=== PATIENT | female | born 1985 | race Caucasian/White ===

== ENCOUNTER 2020-02-12 07:47 | Outpatient (CLI) | payer OTHER, SELFPAY ==
[2020-02-12 08:44] LABS: Hematocrit 42.2 % (37.0-47.0); Mean Corpuscular HGB Conc 33.2 g/dl (32-36); Mean Corpuscular Hemoglobin 29.3 pg (26-34); Mean Corpuscular Volume 88.3 fl (80-100); Mean Platelet Volume 9.2 fl (7.4-10.4); Platelet Count Result 313 k/mm3 (150-375); Red Blood Count 4.78 M/mm3 (4.2-5.4); Red Cell Distribution Width 12.4 % (11.5-14.5)
[2020-02-12 08:58] LABS: Alanine Aminotransferase 17 U/L (4-35); Albumin Level 4.2 g/dL (3.5-5.1); Alkaline Phosphatase 136 U/L (38-126); Anion Gap 11 mmol/L (8-16); Aspartate Amino Transferase 19 U/L (14-36); Bilirubin,Total 0.6 mg/dL (0.2-1.3); Blood Urea Nitrogen 11 mg/dL (7-17); Calcium 9.3 mg/dL (8.4-10.2); Carbon Dioxide 26 mmol/L (22-30); Chloride 98 mmol/L (98-107); Cholesterol 176 mg/dL (0-200); Estimated Glomerular Filt Rate > 60; Glucose 331 mg/dL (65-105); HDL Direct 30 mg/dL; Hemoglobin A1C 10.8 % (<5.7); Potassium 4.3 mmol/L (3.4-5.0); Sodium 135 mmol/L (137-145); Triglycerides 429 mg/dL (<150)
[2020-02-12 09:10] LABS: LDL Cholesterol Direct 60 mg/dL
[2020-02-12 09:28] LABS: Thyroid Stimulating Hormone 0.207 uIU/mL (0.465-4.680)
[2020-02-16 00:03] LABS: Vitamin D 1,25 (OH)2 Total 63 pg/mL (18-72); Vitamin D2 1,25 (OH)2 <8 pg/mL; Vitamin D3 1,25 (OH)2 63 pg/mL
== END 2020-02-12 07:48 | disposition home or self-care (01) ==
PROVIDERS: PCP Nurse Practitioner Family; Visit Provider Nurse Practitioner Family
DX: E55.9 Vitamin D deficiency, unspecified (principal); K92.1 Melena; F41.9 Anxiety disorder, unspecified; R53.83 Other fatigue; E11.9 Type 2 diabetes mellitus without complications; Z86.32 Personal history of gestational diabetes; Z13.220 Encounter for screening for lipoid disorders
CPT/HCPCS: 36415; 80053; 80061; 82652; 83036; 84439; 84443; 85027

== ENCOUNTER 2020-05-12 00:48 | Outpatient (CLI) | payer OTHER, SELFPAY ==
[2020-05-12 19:06] LABS: SARS-CoV-2 RNA PCR Negative
== END 2020-05-12 00:49 | disposition home or self-care (01) ==
LOC: ANHCOVIDDT 00:48
PROVIDERS: PCP Nurse Practitioner Family; Visit Provider Internal Medicine Gastroenterology
DX: Z01.812 Encounter for preprocedural laboratory examination (principal); Z20.822 Contact with and (suspected) exposure to COVID-19
CPT/HCPCS: C9803; U0003

== ENCOUNTER 2020-05-15 00:43 | Day surgery (SDC) | payer OTHER, SELFPAY ==
[2020-05-07 13:57] VITALS: BMI 35.5
[2020-05-15 06:21] VITALS: BP 126/68; PULSE 87; RESP 20; TEMP 36.6; O2SAT 97
[2020-05-15] MEDS: LACTATED RINGERS 1,000 ML 150 ML IV CONT (06:32)
[2020-05-15 06:33] LABS: Glucose Point of Care 166 (65-105)
--- NOTE | 2020-05-15 07:10 | WPDANESEPPF ---
Anes - Initial Pre Proc Eval Procedure: Operation Date: 05/15/20 07:30 Proposed Procedures p Colonoscopy - Hudson Yusuf DO Date/Time: 05/15/20 07:10 Surgeon: Hudson Yusuf DO Pre Op Diagnosis: Bright red Blood Per Rectum Patient Data Age: 35 Gender: F Height: 5 ft 7 in Weight: 100.8 kg Last Vital Signs Temp 97.8 F 05/15/20 06:21 Pulse 87 05/15/20 06:21 Resp 20 05/15/20 06:21 BP 126/68 05/15/20 06:21 Pulse Ox 97 05/15/20 06:21 Allergies Allergy/AdvReac Type Severity Reaction Status Date / Time amoxicillin Allergy Severe Dyspnea / Verified 05/15/20 06:20 SOB dextromethorphan Allergy Severe Dyspnea / Verified 05/15/20 06:20 SOB Home Medications Medication Instructions Recorded Confirmed Type calcium carbonate 600 mg calcium 600 mg PO DAILY 02/01/20 05/07/20 History (1,500 mg) tablet cholecalciferol (vitamin D3) 125 125 mcg PO DAILY 02/01/20 05/07/20 History mcg (5,000 unit) capsule cimetidine 200 mg tablet 200 mg PO QID 02/01/20 05/07/20 History guselkumab 100 mg/mL subcutaneous 100 mg SUB-Q ONCE 02/01/20 05/07/20 History auto-injector levonorgestrel 20 mcg/24 hours (6 1 device I-UTERINE ONCE 02/01/20 05/07/20 History yrs) 52 mg intrauterine device multivitamin 1 tablet PO DAILY 02/01/20 05/07/20 History fluoxetine 20 mg capsule 20 mg PO DAILY #90 cap 02/04/20 05/07/20 Rx dapagliflozin 10 mg tablet 10 mg PO DAILY #30 tablet 02/27/20 05/07/20 Rx Laboratory Tests 05/15/20 06:26 POC Capillary Glucose 166 mg/dl H mg/dl (65-105) Patient hx anesthesia problems: none Family hx anesthesia problems: none PMFSH Past Medical History Medical History (Updated 02/12/20 @ 15:04 by Cassandra Gaona NP) Anxiety Blood in stool Family hx of colon cancer Hx of gestational diabetes mellitus, not currently Type 2 diabetes mellitus without complications Family History Family History (Updated 02/01/20 @ 16:19 by Cassandra Gaona NP) Father Alzheimer's disease with early onset Hypertension Dementia Heart disease Cerebrovascular accident Mother Diabetes mellitus Hypertension Anxiety w/panic attacks Colon polyp Grandparent Carcinoma of colon Hypertension Dementia Other Carcinoma of colon, Onset Age: 37 Maternal aunt - Onset at 37, at 40 Social History Social History (Updated 02/01/20 @ 16:18 by Cassandra Gaona NP) 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 Smoking status: Never smoker Alcohol intake: never Substance use: never Substance use type: does not use Living arrangements: with family Spiritual care concerns: No Anes - Eval Final PreProcedure Day of Procedure 05/15/20 07:10 Patient weight: obese Heart: regular rate and rhythm Lungs: clear to auscultation Airway: Mallampati scale class II Neurological: alert and oriented Last oral intake: >/= 8 hours ASA classification: II Emergent: no Anesthetic plan: proceed Anesthesia type and monitoring: general GIVS and standard monitoring Informed Consent: The patient's anesthetic plan and its attendant risks and benefits were discussed with the patient/family/POA. Questions were solicited and answers provided to the satisfaction of the patient/family/POA.
--- NOTE | 2020-05-15 07:16 | PM.IMHP ---
H&P: HPI History of Present Illness Date/Time: 05/15/20 07:16 Chief Complaint: Patient here for Narrative: Reason for visit is colonoscopy. This very pleasant lady seen in consultation at the request of primary physician. Impression: Here is a very pleasant lady with history of rectal bleeding. This may be perianal in origin. Underlying inflammatory neoplastic disease should be excluded. Patient does have a family history of colon cancer. IBS with diarrhea. Responsive to fiber and probiotic. DM. Psoriasis. Migraine. Anxiety. Recommendation: Colonoscopy. History: This very pleasant lady is here for colonoscopy. She has a family history of colon cancer. The patient does report a history of diarrhea. She takes a probiotic and fiber her diarrhea improves. The patient has developed some rectal bleeding. This consisted of bright red blood in the stool. This has since abated. She is here for colonoscopy. Physical examination: General: very pleasant patient in no acute distress. HEENT: Head was normocephalic sclerae is clear mouth without masses neck was supple. Heart: Rate rhythm regular without S3 or S4. Lungs: CTA. Abdomen: Soft with no guarding or rigidity. Bowel sounds were active. Neurologic: Cranial nerves 2 through 12 intact. No focal defects. No clonus. Musculoskeletal system: Revealed no joint tenderness or swelling no muscle atrophy. Extremities: Reveal no significant edema. Skin: Warm and dry with normal turgor. Mental status: intact. Patient is alert and oriented. Review of Systems Review of Systems: All systems reviewed & are unremarkable except as noted in HPI and below PMFSH Past Medical History Medical History (Updated 05/15/20 @ 07:15 by Hudson Yusuf DO) Anxiety Family hx of colon cancer IBS (irritable bowel syndrome) Migraine Psoriasis Type 2 diabetes mellitus without complications Family History Family History (Updated 02/01/20 @ 16:19 by Cassandra Gaona NP) Father Alzheimer's disease with early onset Hypertension Dementia Heart disease Cerebrovascular accident Mother Diabetes mellitus Hypertension Anxiety w/panic attacks Colon polyp Grandparent Carcinoma of colon Hypertension Dementia Other Carcinoma of colon, Onset Age: 37 Maternal aunt - Onset at 37, at 40 Social History Social History (Updated 02/01/20 @ 16:18 by Cassandra Gaona NP) 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 Smoking status: Never smoker Alcohol intake: never Substance use: never Substance use type: does not use Living arrangements: with family Spiritual care concerns: No Meds Home Medications and Allergies Home Medications Medication Instructions Recorded Confirmed Type calcium carbonate 600 mg calcium 600 mg PO DAILY 02/01/20 05/07/20 History (1,500 mg) tablet cholecalciferol (vitamin D3) 125 125 mcg PO DAILY 02/01/20 05/07/20 History mcg (5,000 unit) capsule cimetidine 200 mg tablet 200 mg PO QID 02/01/20 05/07/20 History guselkumab 100 mg/mL subcutaneous 100 mg SUB-Q ONCE 02/01/20 05/07/20 History auto-injector levonorgestrel 20 mcg/24 hours (6 1 device I-UTERINE ONCE 02/01/20 05/07/20 History yrs) 52 mg intrauterine device multivitamin 1 tablet PO DAILY 02/01/20 05/07/20 History fluoxetine 20 mg capsule 20 mg PO DAILY #90 cap 02/04/20 05/07/20 Rx dapagliflozin 10 mg tablet 10 mg PO DAILY #30 tablet 02/27/20 05/07/20 Rx Allergies Allergy/AdvReac Type Severity Reaction Status Date / Time amoxicillin Allergy Severe Dyspnea / Verified 05/15/20 06:20 SOB dextromethorphan Allergy Severe Dyspnea / Verified 05/15/20 06:20 SOB Vital Signs Vital Signs - 24 hr 05/15/20 06:21 Temperature 36.6 C Pulse Rate 87 Respiratory Rate 20 Blood Pressure 126/68 Pulse Oximetry 97
[2020-05-15 07:45] VITALS: BP 107/57; PULSE 82; RESP 20; O2SAT 97
[2020-05-15 07:55] VITALS: BP 110/57; PULSE 78; RESP 20; O2SAT 97
[2020-05-15 08:02] VITALS: BP 112/60; PULSE 78; RESP 20; O2SAT 98
== END 2020-05-15 08:52 | disposition home or self-care (01) ==
PROVIDERS: PCP Nurse Practitioner Family; Visit Provider Internal Medicine Gastroenterology
PROC: 0DJD8ZZ Inspection of Lower Intestinal Tract, Via Natural or Artificial Opening Endoscopic (ICD-10-PCS; CPT 45378; principal; 2020-05-15 07:30)
DX: K62.5 Hemorrhage of anus and rectum (principal); K63.5 Polyp of colon; K64.8 Other hemorrhoids; K58.0 Irritable bowel syndrome with diarrhea; E11.9 Type 2 diabetes mellitus without complications; L40.9 Psoriasis, unspecified; F41.9 Anxiety disorder, unspecified; Z80.0 Family history of malignant neoplasm of digestive organs; Z79.84 Long term (current) use of oral hypoglycemic drugs; E66.9 Obesity, unspecified; Z68.34 Body mass index [BMI] 34.0-34.9, adult
CPT/HCPCS: 45385; 88305; J2704; J7120

== ENCOUNTER 2020-08-08 13:03 | Outpatient (CLI) | payer OTHER, SELFPAY ==
--- NOTE | ~2020-08-08 | XR_ITS ---
EXAMINATION: XR chest 2V DATE: 08/08/2020 13:27 INDICATION: Cough. TECHNIQUE: Frontal and lateral views of the chest were obtained. COMPARISON: Chest single view 06/07/2012, chest CT 07/19/2016 FINDINGS: The chest demonstrates clear lungs without pneumonia, pleural effusion, or pneumothorax. Th e heart size is normal. There is mild chronic anterior wedging of multiple thoracic vertebral bodies. IMPRESSION: 1. No acute cardiopulmonary disease. Reviewed, dictated and finalized at location A.
[2020-08-08 14:51] LABS: Basophils Percent Auto 0.3 % (0.2-1.2); Eosinophils Absolute Auto 0.2 K/mm3 (0-0.3); Hematocrit 41.7 % (37.0-47.0); Hemoglobin 13.8 g/dL (12.0-15.0); Immature Granulocyte Absolute 0.03 K/mm3 (0.00-0.031); Immature Granulocyte Percent A 0.3 % (0-0.5); Lymphocytes Absolute Auto 3.31 K/mm3 (0.9-3.2); Mean Corpuscular HGB Conc 33.1 g/dl (32-36); Mean Corpuscular Hemoglobin 29.2 pg (26-34); Mean Corpuscular Volume 88.2 fl (80-100); Mean Platelet Volume 9.1 fl (7.4-10.4); Monocytes Absolute Auto 0.6 K/mm3 (0.1-0.6); Monocytes Percent Auto 6.3 % (2.6-8.5); Neutrophils Absolute Auto 5.8 K/mm3 (1.3-6.7); Neutrophils Percent Auto 58.1 % (45.5-73.1); Platelet Count Result 311 k/mm3 (150-375); Red Blood Count 4.73 M/mm3 (4.2-5.4)
[2020-08-08 15:05] LABS: Alanine Aminotransferase 12 U/L (4-35); Albumin Level 4.2 g/dL (3.5-5.1); Alkaline Phosphatase 90 U/L (38-126); Anion Gap 6 mmol/L (8-16); Aspartate Amino Transferase 18 U/L (14-36); Bilirubin,Total 0.3 mg/dL (0.2-1.3); Blood Urea Nitrogen 13 mg/dL (7-17); Carbon Dioxide 30 mmol/L (22-30); Chloride 102 mmol/L (98-107); Estimated Glomerular Filt Rate > 60; Glucose 105 mg/dL (65-105); Potassium 3.9 mmol/L (3.4-5.0); Sodium 138 mmol/L (137-145)
[2020-08-08 15:12] LABS: Hemoglobin A1C 6.6 % (<5.7)
== END 2020-08-08 13:04 | disposition home or self-care (01) ==
LOC: ANHIMG 13:07
PROVIDERS: PCP Nurse Practitioner Family; Visit Provider Nurse Practitioner Family
DX: R05 Cough (principal)
CPT/HCPCS: 36415; 71046; 80053; 83036; 85025

== ENCOUNTER 2021-11-09 17:07 | Outpatient (CLI) | payer OTHER, SELFPAY ==
--- NOTE | ~2021-11-09 | XR_ITS ---
XR ankle LT 2V, XR foot LT 2V 11/09/2021 17:27 INDICATION: Left ankle and foot pain PROCEDURE: 4 views left ankle and 2 views left foot COMPARISON: No prior studies for comparison. FINDINGS: Fracture, dislocation or subluxation is not identified. There is mild osteoarthritis of the first MTP joint. There are degenerative calcaneal enthesophytes at the plantar surface. Lisfranc sachin nt is intact. The soft tissues appear within normal limits. No foreign bodies are identified. IMPRESSION: 1: NO ACUTE BONE OR JOINT ABNORMALITY IDENTIFIED. Reviewed, dictated and finalized at location A. IMPRESSION: 1: NO ACUTE BONE OR JOINT ABNORMALITY IDENTIFIED.
== END 2021-11-09 17:08 | disposition home or self-care (01) ==
PROVIDERS: PCP Nurse Practitioner Family; Visit Provider Nurse Practitioner Family
DX: M25.572 Pain in left ankle and joints of left foot (principal)
CPT/HCPCS: 73600; 73620

== ENCOUNTER 2021-11-27 12:47 | Outpatient (CLI) | payer OTHER, SELFPAY ==
[2021-11-30 12:46] LABS: NIL 0.02 IU/mL; Quantiferon TB Plus, 1T NEGATIVE (NEGATIVE); TB1-NIL 0.03 IU/mL; TB2-NIL 0.03 IU/mL
== END 2021-11-27 12:48 | disposition home or self-care (01) ==
PROVIDERS: PCP Nurse Practitioner Family; Visit Provider Physician Assistant
DX: Z51.81 Encounter for therapeutic drug level monitoring (principal); Z79.899 Other long term (current) drug therapy
CPT/HCPCS: 36415; 86480

== ENCOUNTER 2022-06-11 12:37 | Outpatient (CLI) | payer OTHER, SELFPAY ==
--- NOTE | ~2022-06-11 | XR_ITS ---
Left Knee Technique: AP and lateral views were obtained. Clinical History: Pain Findings: No fracture or dislocation is seen. Osseous alignment is anatomic. Joint spaces are preserv ed without degenerative or erosive change. Moderate joint effusion is seen. Impression: Moderate joint effusion. No fracture or dislocation. Reviewed, dictated and finalized at [facility]. [employer]ITIONER Impression: Moderate joint effusion. No fracture or dislocation.
== END 2022-06-11 12:38 | disposition home or self-care (01) ==
PROVIDERS: PCP Family Medicine; Visit Provider Nurse Practitioner Family
DX: M25.562 Pain in left knee (principal); M25.462 Effusion, left knee
CPT/HCPCS: 73560

== ENCOUNTER 2022-08-03 08:32 | Emergency (ER) | payer OTHER, SELFPAY ==
[2022-08-03] VITALS (9 sets, daily range): BP systolic 120–142; BP diastolic 57–76; PULSE 81–104; RESP 14–20; TEMP 36.4–36.9; O2SAT 95–100
--- NOTE | ~2022-08-03 | CT_ITS ---
EXAMINATION: CT pelvis w con DATE: 08/03/2022 11:38 INDICATION: Left buttock abscess. TECHNIQUE: Computed tomography (CT) of the pelvis was performed with 100 mL Omnipaque 350 intravenous contrast. Automated exposure control and iterative reconstruction technique were employed. The dose- length product was 846.71 mGy-cm. COMPARISON: None FINDINGS: There are no dilated loops of bowel. The appendix is normal. There is a mildly enlarged lef t inguinal lymph node, likely reactive. There is an intrauterine device in expected position. There i s subcutaneous fat stranding, skin thickening, and soft tissue gas in the inferior left buttock and l eft perineum. There are no pathologically enlarged lymph nodes. IMPRESSION: 1. Cellulitis in the inferior left buttock and left perineum with soft tissue gas suspicious for necr otizing fasciitis. I called this result to Kimberlee Stevens. Reviewed, dictated and finalized at location A. IMPRESSION: 1. Cellulitis in the inferior left buttock and left perineum with soft tissue g as suspicious for necrotizing fasciitis. I called this result to Kimberlee jones.
--- NOTE | 2022-08-03 09:08 | PC.NURSE ---
pt brought back to room. Gait steady. Changing into a gown
[2022-08-03 09:35] LABS: Basophils Percent Auto 0.3 % (0.2-1.2); Eosinophils Absolute Auto 0.1 K/mm3 (0-0.3); Eosinophils Percent Auto 0.7 % (0-4.4); Hematocrit 38.7 % (37.0-47.0); Hemoglobin 13.1 g/dL (12.0-15.0); Immature Granulocyte Absolute 0.05 K/mm3 (0.00-0.031); Immature Granulocyte Percent A 0.5 % (0-0.5); Lymphocytes Absolute Auto 1.84 K/mm3 (0.9-3.2); Lymphocytes Percent Auto 16.6 % (18.3-44.2); Mean Corpuscular HGB Conc 33.9 g/dl (32-36); Mean Corpuscular Hemoglobin 30.1 pg (26-34); Mean Platelet Volume 8.9 fl (7.4-10.4); Monocytes Absolute Auto 0.9 K/mm3 (0.1-0.6); Monocytes Percent Auto 8.3 % (2.6-8.5); Neutrophils Absolute Auto 8.2 K/mm3 (1.3-6.7); Neutrophils Percent Auto 73.6 % (45.5-73.1); Platelet Count Result 336 k/mm3 (150-375); Red Blood Count 4.35 M/mm3 (4.2-5.4); White Blood Count 11.1 K/mm3 (4.5-10.0)
[2022-08-03 10:16] LABS: Alanine Aminotransferase 14 U/L (6-35); Albumin Level 3.7 g/dL (3.5-5.1); Alkaline Phosphatase 114 U/L (38-126); Anion Gap 7 mmol/L (8-16); Aspartate Amino Transferase 13 U/L (14-36); Bilirubin,Total 0.6 mg/dL (0.2-1.3); Blood Urea Nitrogen 9 mg/dL (7-17); Calcium 8.5 mg/dL (8.4-10.2); Carbon Dioxide 27 mmol/L (22-30); Chloride 99 mmol/L (98-107); Estimated CRCL calculation 197 ml/min; Estimated Glomerular Filt Rate > 60; Glucose 310 mg/dL (65-110); Potassium 3.6 mmol/L (3.4-5.0); Sodium 133 mmol/L (137-145)
--- NOTE | 2022-08-03 10:19 | ED.GENADULT ---
HPI - General Adult General Chief complaint: Wound/Laceration <Kimberlee Stevens PA-C - Last Filed: 08/03/22 17:35> Stated complaint: left buttocks cellulitis - on antibiotics <Kimberlee Stevens PA-C - Last Filed: 08/03/22 17:35> Time Seen by Provider: 08/03/22 09:07 <Kimberlee Stevens PA-C - Last Filed: 08/03/22 17:35> Source: patient <ALEXANDRA Molina Last Filed: 08/03/22 17:35> Mode of arrival: ambulatory <ALEXANDRA Molina Last Filed: 08/03/22 17:35> Limitations: no limitations <ALEXANDRA Molina Last Filed: 08/03/22 17:35> History of Present Illness HPI narrative: Patient is a 37-year-old female, with PMH of uncontrolled DM, who presents to the ED with report of cellulitis/abscess to her left buttock. Patient reports she first noticed a bump in her left inner gluteal fold/sulcus/proximal thigh last Tuesday. She thought she had cut herself while shaving. She began noticing increased warmth, erythema, tenderness, abscess formation throughout the week. She was started on clindamycin 300 mg 3 times daily by her primary care doctor on and has been taking this as directed. She denies any improvement of her symptoms, actually reports worsening. She states the abscess begins draining purulent and sanguinous drainage on Tuesday, worsening over the weekend. Patient has not had any fevers. She does report nausea, but denies vomiting, abdominal pain, rectal bleeding, rectal pain, abnormal vaginal bleeding or discharge. Patient does have a history of diabetes mellitus, and reports her sugars have been elevated greater than 250 for the last several days. She states she topped taking her Farxiga in May and never followed up with anyone for this. She was started on Glimepiride Tuesday. <ALEXANDRA Molina Last Filed: 08/03/22 17:35> Related Data Home medications: Home Medications Medication Instructions Recorded Confirmed cholecalciferol (vitamin D3) 125 125 mcg PO DAILY 02/01/20 07/29/22 mcg (5,000 unit) capsule guselkumab 100 mg/mL subcutaneous 100 mg subcut ONCE 02/01/20 07/29/22 auto-injector (Tremfya) levonorgestrel 21 mcg/24 hours (8 1 device intrauterine ONCE 02/01/20 07/29/22 yrs) 52 mg intrauterine device (Mirena) multivitamin 1 tablet PO DAILY 02/01/20 07/29/22 cimetidine 200 mg tablet 200 mg PO DAILY 03/01/22 07/29/22 oregano oil 1,500 mg capsule mg PO 07/29/22 07/29/22 <Kimberlee Stevens PA-C - Last Filed: 08/03/22 17:35> Allergies/adverse reactions: Allergies Allergy/AdvReac Type Severity Reaction Status Date / Time amoxicillin Allergy Severe Dyspnea / Verified 08/03/22 08:33 SOB dextromethorphan Allergy Severe Dyspnea / Verified 08/03/22 08:33 SOB <Kimberlee Stevens PA-C - Last Filed: 08/03/22 17:35> Review of Systems Review of Systems: CONSTITUTIONAL: Denies fever, chills, or sweats. CARDIOVASCULAR: Denies chest pain. RESPIRATORY: Denies dyspnea. GASTROINTESTINAL: See HPI. GENITOURINARY: See HPI. SKIN: See HPI. NEUROLOGIC: Denies headache, numbness, or weakness. <Kimberlee Stevens PA-C - Last Filed: 08/03/22 17:35> All systems reviewed & are unremarkable except as noted in HPI and below <Kimberlee Stevens PA-C - Last Filed: 08/03/22 17:35> PMFSH Past Medical History Medical History: Medical History Anxiety Diabetes Family hx of colon cancer GERD (gastroesophageal reflux disease) Headache IBS (irritable bowel syndrome) Migraine Psoriasis Type 2 diabetes mellitus without complications <Kimberlee Stevens PA-C - Last Filed: 08/03/22 17:35> Surgical History Surgical History: Surgical History History of tonsillectomy Hx of colonoscopy with polypectomy (~05/2020) Polyp x1, repeat in [address] Yusuf <Kimberlee Woodard G
[2022-08-03] MEDS: SODIUM CHLORIDE 0.9% IV 1,000 ML 999 ML IV CONT ×2 (10:58→17:00)
[2022-08-03] MEDS: ONDANSETRON INJ 4 MG/2 ML VIAL IV PUSH ×2 (10:58→17:06)
[2022-08-03 11:18] LABS: Lactic Acid Reflex 1.7 mmol/L (0.7-2.0)
[2022-08-03 11:29] LABS: Erythrocyte Sedimentation Rate 84 mm/hr (0-20)
[2022-08-03 11:37] LABS: CRP 18.8 mg/dL (<1.0)
[2022-08-03 13:38] LABS: Hemoglobin A1C 9.8 % (<5.7)
[2022-08-03 15:56] LABS: Estimated CRCL calculation 197 ml/min; Estimated Glomerular Filt Rate > 60
[2022-08-03 16:37] LABS: INR 1.2; Partial Thromboplastin Time 29.2 SECONDS (22.3-36.8)
[2022-08-03] MEDS: CLINDAMYCIN 900 MG/D5W 50 ML 900 MG/50 ML PIGGYBACK 50 MG IVPB (17:05)
== END 2022-08-03 17:30 | disposition short-term general hospital (02) ==
PROVIDERS: Emergency Provider Physician Assistant; PCP Nurse Practitioner Family
DX: M72.6 Necrotizing fasciitis (principal); L02.31 Cutaneous abscess of buttock; L03.317 Cellulitis of buttock; E11.65 Type 2 diabetes mellitus with hyperglycemia; K21.9 Gastro-esophageal reflux disease without esophagitis; L40.9 Psoriasis, unspecified; F41.9 Anxiety disorder, unspecified; K58.9 Irritable bowel syndrome, unspecified; Z79.899 Other long term (current) drug therapy; Z79.84 Long term (current) use of oral hypoglycemic drugs
CPT/HCPCS: 36415; 72193; 80053; 81025; 82565; 83036; 83605; 85025; 85610; 85652; 85730; 86140; 86850; 86900; 86901; 87040; 87070; 87077; 87205; 96361; 96365; 96366; 96367; 96375; 96376; 99285; J0131; J0743; J2405; J3370; J7030; J7050; Q9967

== ENCOUNTER 2022-10-08 12:30 | Outpatient (RCR) | payer OTHER, SELFPAY ==
--- NOTE | 2022-08-11 15:25 | PCPTNOTE ---
Patient called & cancelled scheduled appointment this date due to just getting out of the hospital. She states she will call back to reschedule.
--- NOTE | 2022-09-10 09:57 | PTOPEVAL1 ---
Assessment and note entered by Sari Bernabe, PT, DPT Evaluation Information Assessment Status Evaluation Diagnosis L knee Onset 6-8 months Subjective Information Pt reports about a 6 month history of L knee pain. She was given a steroid injection last month, this helped for about a week. She reports no LAURA, she states she has Psoriasis. She states she was sitting cross-legged at work the day before her knee pain started and states her knee got really swollen. Reported Pain Level Pain Score 2: Self Report Assessment PT Clinical Summary Tamera presents to therapy today for her initial evaluation with a diagnosis of L knee pain. Today she demonstrates good active knee ROM indio and strength. She demonstrates hypermobility of her hips indio and has a tendency to standing in indio knee hyperextension. She demonstrates stability deficits during functional squatting and stair ambulation. She currently demonstrates a strong antalgic pattern during level gait and stair ambulation but this decreases with cueing. Skilled physical therapy services are indicated to improve LE stability, movement mechanics, functional mobility, and pain, and to return to PLOF. Plan of Care Interventions Electrical Stimulation,Gait Training,Hot Pack/Cold Pack,Manual Therapy,Neuro Re-education,Patient/ Caregiver Educati,Therapeutic Activities, Therapeutic Exercise PT Services Indicated Yes Treatment Frequency and 1-2x/wk for 4 wks Duration These treatments will address the objective and functional deficits as defined above. The patient will be advanced safely and appropriately in order for the patient to progress towards his/her prior level of function. Additional exercises will be introduced and as well as a comprehensive home exercise program upon discharge, if needed, ?to ensure carryover of functional gains achieved in the clinic. This treatment plan has been reviewed and agreement upon by the patient.
--- NOTE | 2022-10-08 13:16 | PTOPPROG ---
Assessment and note entered by Sari Bernabe, PT, DPT Evaluation Information Assessment Status Progress Diagnosis L knee Onset 6-8 months Subjective Information Pt reports her knee is doing good today, she states she did a lot of walking yesterday and is still feeling good today. She states she had a lot of pain this week but manual techniques used in therapy really helped with that. Assessment PT Clinical Summary Tamera presents to therapy today for her progress report following 8 visits of skilled therapy to treat her L knee pain. Today she demonstrates good active knee ROM indio and strength. She not ambulates on a level surface and on stairs without deviations. She demonstrates good mechanics with functional lifts after today. She has met all of her therapy goals. Pt chart will be left open for 1 month as she is nervous stopping therapy completely as she has only had no pain for 1 week. If additional therapy is not indicated she will be discharged at that time. Plan of Care Interventions Electrical Stimulation,Gait Training,Hot Pack/Cold Pack,Manual Therapy,Neuro Re-education,Patient/ Caregiver Educati,Therapeutic Activities, Therapeutic Exercise PT Services Indicated Yes Treatment Frequency and 0-1x/wk for 4 wks Duration These treatments will address the objective and functional deficits as defined above. The patient will be advanced safely and appropriately in order for the patient to progress towards his/her prior level of function. Additional exercises will be introduced and as well as a comprehensive home exercise program upon discharge, if needed, ?to ensure carryover of functional gains achieved in the clinic. This treatment plan has been reviewed and agreement upon by the patient.
--- NOTE | 2022-10-28 13:31 | PTOPDC ---
Assessment and note entered by Sari Bernabe, PT, DPT Evaluation Information Assessment Status Discharge - Pt Not Presetn Diagnosis L knee Onset 6-8 months Subjective Information Pt called and states she is still doing well and does not need additional therapy at this time. Assessment PT Clinical Summary Tamera completed 9 visits of skilled therapy from 04/23 to 10/08/22. She reports good progress and complacence with her HEP. She will be discharged at this time. Pt aware if she need additional therapy at a later time she will need a new order. Plan of Care PT Services Indicated No
== END 2022-10-28 14:53 | disposition home or self-care (01) ==
LOC: ANHGOSHPT 12:30
PROVIDERS: PCP Nurse Practitioner Family; Visit Provider Orthopaedic Surgery
DX: M25.562 Pain in left knee (principal)
CPT/HCPCS: 97110; 97112; 97140; 97161; 97530

== ENCOUNTER 2023-01-12 16:56 | Outpatient (CLI) | payer OTHER, SELFPAY ==
[2023-01-12 18:33] LABS: Creatinine Urine 106.6 mg/dL
[2023-01-12 18:38] LABS: MALB Creatinine Ratio 6.2 mg/g (0-30); Microalbumin Urine Random 6.6 mg/L (0-16.7)
== END 2023-01-12 16:57 | disposition home or self-care (01) ==
LOC: ANHLAB 16:58
PROVIDERS: PCP Nurse Practitioner Family; Visit Provider Nurse Practitioner Family
DX: E11.9 Type 2 diabetes mellitus without complications (principal)
CPT/HCPCS: 82043

== ENCOUNTER 2023-05-23 10:01 | Emergency (ER) | payer OTHER, SELFPAY ==
--- NOTE | ~2023-05-23 | CT_ITS ---
EXAMINATION: CT cervical spine wo con DATE: 05/23/2023 10:59 INDICATION: Fall with head injury TECHNIQUE: Computed tomography (CT) of the cervical spine was performed without intravenous contrast. Automated exposure control and iterative reconstruction technique were employed. The dose-length pro duct was 522.25 mGy-cm. COMPARISON: None FINDINGS: Straightening of the normal cervical lordosis likely related to the presence of a cervical collar. No spondylolisthesis or facet subluxation. Vertebral body heights are normal. No fracture. Mild to mode rate disc height loss at C5-C6 with mild right-sided and moderate left-sided uncovertebral osteoarthr itis. Posterior disc osteophyte complex at this level which results in mild central canal stenosis. A dditional disc canal stenosis at C3-C4, C4-C5 and C6-C7. Multilevel minimal to mild cervical facet os teoarthritis. No stenosis. Cervical soft tissues are unremarkable. Visualized apices of lungs are waylon ar. IMPRESSION: 1. Cervical spondylosis, mild to moderate at C5-C6 and otherwise minimal. No acute osseous abnormalit y. Reviewed, dictated and finalized at location A. SOFTWARE IMPRESSION: 1. Cervical spondylosis, mild to moderate at C5-C6 and otherwise minimal. No ac point hope ira osseous abnormality.
--- NOTE | ~2023-05-23 | XR_ITS ---
EXAMINATION: XR shoulder RT min 2V DATE: 05/23/2023 11:02 INDICATION: Right shoulder pain post fall TECHNIQUE: AP internally and externally rotated, AP oblique externally rotated and transscapular Y vi ews of the right shoulder were obtained. COMPARISON: None FINDINGS: Normal alignment. No fracture. Glenohumeral joint is normal. Mild acromioclavicular osteoarthritis. Soft tissues are unremarkable. Visualized portion of the lungs are clear. IMPRESSION: Mild right acromioclavicular osteoarthritis. No acute osseous abnormality. Reviewed, dictated and finalized at location A. [facility] C[facility] DIRECTOR
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
[2023-05-23 10:02] VITALS: BP 151/80; PULSE 115; RESP 16; TEMP 36.6; O2SAT 98
--- NOTE | 2023-05-23 11:18 | ED.FALL ---
HPI - Fall General Chief Complaint: Fall Stated Complaint: fall and hit head Time Seen by Provider: 05/23/23 10:11 Source: patient Mode of arrival: ambulatory Limitations: no limitations History of Present Illness HPI Narrative: Tamera is a 38-year-old female patient presenting to the ER today for a ground level fall on ice. She reports she fell as she was walking into work this morning. States she had the back of her head, is complaining of some neck and right shoulder pain as well. Denies any loss of consciousness. No nausea or vomiting. Related Data Home Medications Medication Instructions Recorded Confirmed cholecalciferol (vitamin D3) 125 125 mcg PO DAILY 02/01/20 12/22/22 mcg (5,000 unit) capsule guselkumab 100 mg/mL subcutaneous 100 mg subcut ONCE 02/01/20 12/22/22 auto-injector (Tremfya) levonorgestrel 21 mcg/24 hours (8 1 device intrauterine ONCE 02/01/20 12/22/22 yrs) 52 mg intrauterine device (Mirena) multivitamin 1 tablet PO DAILY 02/01/20 12/22/22 cimetidine 200 mg tablet 200 mg PO DAILY 03/01/22 12/22/22 oregano oil 1,500 mg capsule mg PO 07/29/22 12/22/22 Allergies Allergy/AdvReac Type Severity Reaction Status Date / Time amoxicillin Allergy Severe Dyspnea / Verified 05/23/23 10:06 SOB dextromethorphan Allergy Severe Dyspnea / Verified 05/23/23 10:06 SOB Review of Systems Review of Systems: Pertinent positives per HPI. Patient denies any fever, chills, rash, headache, visual changes, dizziness, cough, runny nose, sore throat, shortness of breath, chest pain, palpitations, nausea, vomiting, diarrhea, constipation, abdominal pain, or any urinary issues. [facility] Past Medical History Medical History Anxiety Diabetes Family hx of colon cancer GERD (gastroesophageal reflux disease) Headache IBS (irritable bowel syndrome) Migraine Psoriasis Type 2 diabetes mellitus without complications Surgical History Surgical History History of tonsillectomy Hx of colonoscopy with polypectomy (~05/2020) Polyp x1, repeat in 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 There is no relevant family history pertinent to the patient complaint. Exam Narrative: General: Well-developed, well nourished, in no apparent distress Head: Normocephalic, atraum
== END 2023-05-23 12:43 | disposition home or self-care (01) ==
PROVIDERS: Emergency Provider Nurse Practitioner Family; PCP Family Medicine
DX: S00.03XA Contusion of scalp, initial encounter (principal); S46.911A Strain of unspecified muscle, fascia and tendon at shoulder and upper arm level, right arm, initial encounter; S16.1XXA Strain of muscle, fascia and tendon at neck level, initial encounter; E11.9 Type 2 diabetes mellitus without complications; K21.9 Gastro-esophageal reflux disease without esophagitis; K58.9 Irritable bowel syndrome, unspecified; L40.9 Psoriasis, unspecified; F41.9 Anxiety disorder, unspecified; Z97.5 Presence of (intrauterine) contraceptive device; Z86.010 Personal history of colon polyps; Z79.4 Long term (current) use of insulin; M47.812 Spondylosis without myelopathy or radiculopathy, cervical region; M19.011 Primary osteoarthritis, right shoulder; W00.0XXA Fall on same level due to ice and snow, initial encounter
CPT/HCPCS: 70450; 72125; 73030; 99284

== ENCOUNTER 2023-06-22 17:09 | Outpatient (CLI) | payer OTHER, SELFPAY ==
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
== END 2023-06-22 17:10 | disposition home or self-care (01) ==
LOC: ANHIMG 17:10
PROVIDERS: PCP Family Medicine; Visit Provider Nurse Practitioner Family
DX: S59.919A Unspecified injury of unspecified forearm, initial encounter (principal); S59.901A Unspecified injury of right elbow, initial encounter
CPT/HCPCS: 73090

== ENCOUNTER 2023-06-23 17:37 | Outpatient (CLI) | payer OTHER, SELFPAY ==
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
== END 2023-06-23 17:38 | disposition home or self-care (01) ==
PROVIDERS: PCP Family Medicine; Visit Provider Nurse Practitioner Family
DX: S69.91XA Unspecified injury of right wrist, hand and finger(s), initial encounter (principal)
CPT/HCPCS: 73110

== ENCOUNTER 2023-07-12 07:08 | Outpatient (CLI) | payer OTHER, SELFPAY ==
[2023-07-12 08:06] LABS: Basophils Percent Auto 0.3 % (0.2-1.2); Eosinophils Absolute Auto 0.1 K/mm3 (0-0.3); Eosinophils Percent Auto 1.3 % (0-4.4); Hematocrit 41.9 % (37.0-47.0); Hemoglobin 13.4 g/dL (12.0-15.0); Immature Granulocyte Absolute 0.03 K/mm3 (0.00-0.031); Immature Granulocyte Percent A 0.3 % (0-0.5); Lymphocytes Absolute Auto 2.06 K/mm3 (0.9-3.2); Lymphocytes Percent Auto 21.6 % (18.3-44.2); Mean Corpuscular Hemoglobin 29.6 pg (26-34); Mean Corpuscular Volume 92.5 fl (80-100); Mean Platelet Volume 9.5 fl (7.4-10.4); Monocytes Absolute Auto 0.6 K/mm3 (0.1-0.6); Monocytes Percent Auto 6.4 % (2.6-8.5); Neutrophils Absolute Auto 6.7 K/mm3 (1.3-6.7); Neutrophils Percent Auto 70.1 % (45.5-73.1); Platelet Count Result 283 k/mm3 (150-375); Red Blood Count 4.53 M/mm3 (4.2-5.4); White Blood Count 9.5 K/mm3 (4.5-10.0)
[2023-07-12 08:22] LABS: Alanine Aminotransferase 15 U/L (6-35); Albumin Level 4.1 g/dL (3.5-5.1); Alkaline Phosphatase 105 U/L (38-126); Anion Gap 8 mmol/L (8-16); Aspartate Amino Transferase 20 U/L (14-36); Bilirubin,Total 0.5 mg/dL (0.2-1.3); Blood Urea Nitrogen 12 mg/dL (7-17); Carbon Dioxide 25 mmol/L (22-30); Chloride 104 mmol/L (98-107); Cholesterol 134 mg/dL (0-200); Estimated Glomerular Filt Rate > 60; Glucose 167 mg/dL (65-110); HDL Direct 27 mg/dL; Potassium 3.9 mmol/L (3.4-5.0); Sodium 137 mmol/L (137-145); Triglycerides 296 mg/dL (<150)
[2023-07-12 08:23] LABS: Creatinine Urine 230.2 mg/dL
[2023-07-12 08:27] LABS: Hemoglobin A1C 8.3 % (<5.7)
[2023-07-12 08:27] LABS: MALB Creatinine Ratio 7.3 mg/g (0-30); Microalbumin Urine Random 16.8 mg/L (0-16.7)
[2023-07-12 08:33] LABS: LDL Cholesterol Direct 57 mg/dL
[2023-07-14 16:38] LABS: NIL 0.03 IU/mL; Quantiferon TB Plus, 1T NEGATIVE (NEGATIVE); TB1-NIL 0.03 IU/mL; TB2-NIL 0.03 IU/mL
== END 2023-07-12 07:09 | disposition home or self-care (01) ==
LOC: ANHLAB 07:10
PROVIDERS: PCP Family Medicine; Visit Provider Nurse Practitioner Family
DX: Z00.00 Encounter for general adult medical examination without abnormal findings (principal); E78.5 Hyperlipidemia, unspecified; E11.9 Type 2 diabetes mellitus without complications; K21.9 Gastro-esophageal reflux disease without esophagitis; Z79.4 Long term (current) use of insulin; Z79.60 Long term (current) use of unspecified immunomodulators and immunosuppressants
CPT/HCPCS: 36415; 80053; 80061; 82043; 83036; 85025; 86480

== ENCOUNTER 2024-01-16 06:52 | Outpatient (CLI) | payer OTHER, SELFPAY ==
[2024-01-16 07:17] LABS: Hemoglobin A1C 6.7 % (<5.7)
[2024-01-16 07:23] LABS: Alanine Aminotransferase 11 U/L (6-35); Albumin Level 4.1 g/dL (3.5-5.1); Alkaline Phosphatase 84 U/L (38-126); Anion Gap 7 mmol/L (4-12); Aspartate Amino Transferase 18 U/L (14-36); Basophils Percent Auto 0.3 % (0.2-1.2); Bilirubin,Total 0.5 mg/dL (0.2-1.3); Blood Urea Nitrogen 12 mg/dL (7-17); Calcium 8.8 mg/dL (8.4-10.2); Carbon Dioxide 29 mmol/L (22-30); Chloride 99 mmol/L (98-107); Cholesterol 114 mg/dL (0-200); Eosinophils Absolute Auto 0.1 K/mm3 (0-0.3); Eosinophils Percent Auto 1.3 % (0-4.4); Estimated Glomerular Filt Rate > 60; Glucose 175 mg/dL (65-110); HDL Direct 31 mg/dL; Hematocrit 40.9 % (37.0-47.0); Hemoglobin 13.3 g/dL (12.0-15.0); Immature Granulocyte Absolute 0.03 K/mm3 (0.00-0.031); Immature Granulocyte Percent A 0.3 % (0-0.5); Lymphocytes Percent Auto 25.1 % (18.3-44.2); Mean Corpuscular HGB Conc 32.5 g/dl (32-36); Mean Corpuscular Hemoglobin 29.8 pg (26-34); Mean Corpuscular Volume 91.7 fl (80-100); Mean Platelet Volume 9.3 fl (7.4-10.4); Monocytes Absolute Auto 0.6 K/mm3 (0.1-0.6); Monocytes Percent Auto 6.3 % (2.6-8.5); Neutrophils Absolute Auto 6.4 K/mm3 (1.3-6.7); Neutrophils Percent Auto 66.7 % (45.5-73.1); Platelet Count Result 274 k/mm3 (150-375); Potassium 4.2 mmol/L (3.4-5.0); Red Blood Count 4.46 M/mm3 (4.2-5.4); Red Cell Distribution Width 13.2 % (11.5-14.5); Sodium 135 mmol/L (137-145); Triglycerides 238 mg/dL (<150); White Blood Count 9.6 K/mm3 (4.5-10.0)
[2024-01-16 07:34] LABS: LDL Cholesterol Direct 43 mg/dL
[2024-01-16 07:35] LABS: Free T4 Free Thyroxine 0.83 ng/mL (0.78-2.19); Vitamin D 25 Hydroxy 53.3 ng/mL
[2024-01-16 07:45] LABS: Thyroid Stimulating Hormone 0.707 uIU/mL (0.465-4.680)
[2024-01-16 10:18] LABS: MALB Creatinine Ratio 21.3 mg/g (0-30); Microalbumin Urine Random 42.9 mg/L (0-16.7)
== END 2024-01-16 06:53 | disposition home or self-care (01) ==
LOC: ANHLAB 06:53
PROVIDERS: PCP Family Medicine; Visit Provider Nurse Practitioner Family
DX: Z00.00 Encounter for general adult medical examination without abnormal findings (principal); E55.9 Vitamin D deficiency, unspecified; E78.5 Hyperlipidemia, unspecified; E11.9 Type 2 diabetes mellitus without complications; Z79.4 Long term (current) use of insulin
CPT/HCPCS: 36415; 80053; 80061; 82043; 82306; 83036; 84439; 84443; 85025

== ENCOUNTER 2024-07-24 06:47 | Outpatient (CLI) | payer OTHER, SELFPAY ==
--- OUTSIDE RECORDS SUMMARY | 2024-07-24 06:50 | XMS_ITS | Clinical Summary ---
Author Organization [facility] Address [address] [place] [id number] Care Team Providers Care Tunnel Mucker Name Role Phone Unavailable Primary Care Provider Unavailabl e Social History Tobacco Use Types Packs/Day Years Used Date Smoking Tobacco: Never Assessed Comments Unknown Sex and Gender Information Value Date Recorded Sex Assigned at Not on file Legal Sex Female 9:38 PM CDT Gender Identity Not on file Sexual Orientation Not on file Last Filed Vital Signs Vital Sign Reading Time Taken Comments Blood Pressure 128/80 07/18/2017 10:36 AM CDT Pulse 87 07/18/2017 10:36 AM CDT Temperature - - Respiratory Rate - - Oxygen Saturation - - Inhaled Oxygen Concentration - - Weight 120.8 kg (266 lb 6.1 oz) 018 10:36 AM CDT Height 170.2 cm (5' 7 ) 07/18/2017 10:3 6 AM CDT Body Mass Index 41.72 07/18/2017 10:36 AM CDT Plan of Treatment Health Maintenance Due Date Last Done Comments Cervical Cancer Screening Pa p Smear (Age 30 to 64) Every 3 Years 1984 Annual Physical 1987 Hepatitis C 2002 Hepatitis B Vaccines (1 of 3 - 19+ 3-dose series) 2003 Cervical Cancer Screening Pa p with HPV Testing (Age 30 to 64) Every 5 Years 2014 Cervical Cancer Screening with HPV 2014 DTaP, Tdap and Td Vaccines ( 2 - Td or Tdap) 01/01/2021 01/01/2011 COVID-19 Vaccine (2023-2 5 season) 2024 Influenza Adult (#1) 2024 02/17/2017 Mammogram Screening 2024 HPV Vaccines Aged Out No longer eligi ble based on patient's age to complete this topic Meningococcal B Vaccine Aged Out No l onger eligible based on patient's age to complete this topic Meningococcal Vaccine Aged Out No bianca malia eligible based on patient's age to complete this topic Pneumococcal Vaccine: Pediat rics (0 to 5 Years) and At-Risk Patients (6 to 64 Years) Aged Out No longer eligi ble based on patient's age to complete this topic RSV Immunizations Under 20 Months Aged Out No longer eligible based on patient's age to complete this topic
--- OUTSIDE RECORDS SUMMARY | 2024-07-24 06:50 | XMS_ITS | Clinical Summary ---
Author Organization [facility] Address [address], [facility] [address] [place] [address] Phone Care Team Providers Care Nurse Technician Name Role Phone Cassandra Gaona APRN, HOT METAL MIXER OPERATOR HELPER Primary Care Provider U navailable Allergies Active Allergy Reactions Criticality Noted Date Comments Amoxicillin Hives 03/07/2020 Dextromethorphan Hives 03/07/2020 Medications FLUoxetine (PROzac) 20 MG Capsule TAKE 1 CAPSULE BY MOUTH ONCE DAILY 0 Active Tremfya 100 MG/ML Solution Pen-injector 0 Active Farxiga 10 MG Tablet TAKE 1 TABLET BY MOUTH ONCE DAILY 0 Active Cholecalciferol (VITAMIN D3 PO) Take by mouth. Active cimetidine (TAGAMET) 200 MG Tablet Take 200 mg by mouth 4 times daily. Active Calcium Carbonate (CALCIUM 600 PO) Take by mouth. Activ e BIOTIN PO Take by mouth. Activ e Multiple Vitamin (MULTIVITAMIN PO) Take by mouth. Activ e other by Other route. Super Multidophilus. 24 strain 30 billion Cfu plus prebiotic inulin Active Levonorgestrel (MIRENA, 52 MG, IU) by Intrauterine route. Active Active Problems No known active problems Family History Medical History Relation Name Comments Dementia Father Heart Attack Father Hypertension Father Stroke Father Colon Cancer Maternal Aunt Cancer Maternal Grandmother Diabetes Mother Hypertension Mother Cancer Paternal Grandfather Lung Cancer Paternal Grandfather Relation Name Status Comments Father Maternal Aunt Maternal Grandmother Alive Colon c ancer Mother Paternal Grandfather Social History Tobacco Use Types Packs/Day Years Used Date Smoking Tobacco: Never Smokeless Tobacco: Never Tobacco Cessation:Counseling Given: No Alcohol Use Standard Drinks/Week Comments Yes 0 (1 standard drink = 0.6 oz pur e alcohol) 1-2x yearly Sexually Active Control Partners Comments Yes Comments No Sex and Gender Information Value Date Recorded Sex Assigned at Not on file Legal Sex Female 12:57 PM CDT Gender Identity Not on file Sexual Orientation Not on file Last Filed Vital Signs Vital Sign Reading Time Taken Comments Blood Pressure 136/84 03/07/2020 11:00 AM COMPO CASTER Pulse 86 03/07/2020 11:00 AM COMPO CASTER Temperature 36.1 C (97 F) 03/07/2020 11:00 AM COMPO CASTER Respiratory Rate - - Oxygen Saturation 98% 03/07/2020 11:00 AM COMPO CASTER Inhaled Oxygen Concentration - - Weight 106.6 kg (235 lb) 03/07/2020 11:00 AM COMPO CASTER Height 170.2 cm (5' 7 ) 03/07/2020 11:00 AM COMPO CASTER Body Mass Index 36.81 03/07/2020 11:00 AM COMPO CASTER Plan of Treatment Health Maintenance Due Date Last Done Comments Hepatitis C Virus (HCV) Screening 1984 Hepatitis B Immunization (1 of 3 - 19+ 3-dose series) 2003 Influenza Immunization (#1) 2024 02/17/2017 SARS-COV-2 Immunization ( season) 2024 12/14/2020, 11/16/2020 Colonoscopy High Risk 05/15/2025 05/15/2020 Colorectal Cancer Screening 05/15/2025 Colonoscopy 05/15/2030 05/15/2020 Respiratory Syncytial Virus (RSV) Immunization (Adult) (1 - 1-dose 75+ series) 2059 DTaP/Tdap/Td Immunization Discontinued 01/01/2011 TdaP Immunization Completed 01/01/2011 Meningococcal Immunization (ACWY) Aged Out No longer eligible based on patient's age to complete this topic Pneumococcal Immunization Combined Aged Out No longer eligible based on patient's age to complete this topic Rotavirus Immunization Aged Out No lo nger eligible based on patient's age to complete this topic Procedures Procedure Name Priority Date/Time Associated Diagnosis Comments COLONOSCOPY Routine 05/15/2020 from Last 3 Months or Most Recently Relevant to Health Maintenance Results * COLONOSCOPY (05/15/2020) Hudson Yusuf DO PROCEDURE/MINOR SURGICAL ORDERA BLES Final Result from Last 3 Months or Most Recently Relevant to Health Maintenance Insurance [employer] [address] Care Teams Nurse Technician Relationship Specialty Start Date End Date Cassandra Gaona APRN, HOT METAL MIXER OPERATOR HELPER PCP - General Certified Nurse Practitioner 03/07/20
--- OUTSIDE RECORDS SUMMARY | 2024-07-24 06:50 | XMS_ITS | Data Portability ---
Author Organization [facility] Address [address] [place] [address] [place] [address] Care Team Providers Care Suspension Cord Tier Name Role Phone HERLINDA PACO Primary Care Provider [phone] Assessment Encounter Date Assessment Date Assessment LastModified by Organization Details LastModified Time 03/19/2022 03/19/2022 Annual gynecological exam performed. Patient will come back in a year unless there are new symptoms. Not available 03/19/2022 14:11:12 Plan of Treatment Reminders Order Date Submit Date Provider Last Modified By Organization Details Last Modified Time Details Appointments None recorded. Lab unlisted lab - CT/GC and trichomonas vaginalis (rrna) 2020 [facility] (Lab), [address], [place], [address], 11:28:25 test, urine 2020 021 [email or web address] [place], [facility] [address], [place], [address], 15:26:04 Referral None recorded. Procedures None recorded. Surgeries None recorded. Imaging None recorded. Medication Orders Bactrim DS 800 mg-160 mg tablet [address] [facility] [facility], [place], [address], 16:20:10 mupirocin 2 % topical ointment [address] [facility], [address] [place], [address], 16:20:08 Diflucan [address] [facility], [address] [facility], [place], [address], 16:20:03 Mirena 21 mcg/24 hr (up to 8 years) 52 mg intrauterin e device 2020 [email or web address] Not available 14:43:23 Patient TargetsNo targets recorded. Patient InstructionsNo instructions recorded. Reason for Referral None Reported. Results Created Date Observation Date Name Description Value Unit Range Abnormal Flag Note LastModifiedBy Organization Detail LastModifiedTime 04/10/2004/10/2021 pregn jose angel test, urine HCG negati ve Not Available [place] [address], [place], [address], 04/10/2021 15:25:58 10/29/19 22 10/28/2021 CULTU RE: AEROB IC/AN AEROB IC result report SEE RESULT S BELOW abnormal Test: Cultu re: Aerob ic/An aerob ic Speci men Sourc e: Labia Major a, Left Speci men Type: Micro biolo gy Speci men Speci men Date: 2021 5:26 PM Resul t Date: 12:26 PM Resul t Statu s: Final resul t Abnor mal: Yes Resul sanchez Lab: [facility] [address] [facility] [address] Tel: CULTU RE ----- ----- ----- --- Heavy Growt h Strep tococ cus agala ctiae (Grou p B) (Abno rmal) Light Growt h Staph yloco ccus coagu lase negat akshat Cultu re sampl es colle cted from sites that are proxi mal to yoly l anaer obic luly , do not provi de usefu l infor dioni maddox. The anaer obic porti on of this cultu re has been credi sven. STAIN ----- ----- ----- --- Few Gram posit akshat cocci in chain s seen Not Available [facility] (Lab) [address], [place], [address], 10/31/2021 13:29:02 03/19/20 22 03/19/2022 IMAGE GUIDE D PAP AND HPV REGAR DLESS image guided Pap, HPV regardless of Pap result SEE RESULT S BELOW abnormal CASE REPOR T: Cytol ogy Gynec ologi colt Repor t Case: [id number] Autho tati catrachita Provi nita: Rudy Eddy Colle cted: 03/19 1639 METAL BUFFER Order ing Locat ion: [place] Path[facility] Recei misti: 03/20 0835 First Scree n: Angela Mendiola Patho logis t: Roberto Carlos Pierre rd, MD Speci men: Scree dax Pap - Image d, Cervi x STATE MENT OF ADEQU ACY: Satis facto ry for evalu ation Trans forma tion zone compo nent prese nt FINAL DIAGN OSIS: Epith elial Cell Abnor malit y, Squam ous Cell: Atypi colt Squam ous Cells of Undet ermin ed Signi barbara ce (ASC- US). Funga l organ isms morph ologi bryant consi stent with Anali da spp. Elect maxwell vinson d by Roberto Carlos Pierre rd, MD on 03/24 at 9:56 AM ----- ----- ----- ----- ----- ----- ----- ----- ----- ----- ----- ----- ----- ----- ----- ----- ----- ---- HPV RESUL TS: HPV mRNA E6/E7 : No HPV mRNA Detec sven NOTE: This high risk HPV mRNA assay detec ts fourt een high- risk HPV types (16, 18, 31, 33, 35, 39, 45, 51, 52, 56, 58, 59, 66, 68) witho ut diffe renti ation . COMME NT: Note: This speci men was revie wed by a Cytot echno logis t and/o r Patho logis t (as indic ated in this repor t) after evalu ation using the Thinp rep Imagi ng Syste m. CLINI COLT INFOR MATIO N: Menst rual Statu s: LMP (if appli cable ): Clini colt Histo ry/Pr eviou s Pap: Type of Neopl marni (if appli cable ): Signi fican t Clini colt Findi ngs: Other Histo ry: Hormo milagros (if appli cable ): SUGGE STED FOLLO W-UP: Follo w up as warra nted, based on curre nt guide lines and indiv idual patie nt consi derat ions. Not Available [facility] (Lab) [address], [place], [address], 03/24/2022 10:58:55 Result Notes None recorded. Procedures Surgical History Date Name Laterality Status Provider Name and Address Organization Details Recorded Time 10/29/19 22 I&D completed DOMINGUEZ Rodríguez- [address], [place], [address], [facility] 10/28/2021 16:40:01 04/10/20 21 IUD Insertion completed Shannon Liu [facility] 04/11/2021 12:27:19 02/14/20 21 Date of Last Pap Smear completed [facility] 10/28/2021 16:04:30 05/15/19 21 completed [facility] 02/13/2021 14:07:20 05/02/19 21 Colonoscopy completed [facility] 02/13/2021 14:09:44 Tonsillectomy completed [facility] 02/13/2021 14:07:29 Colonoscopy completed [facility] 05/15/2021 11:51:52 Imaging Results None recorded. Procedure Notes None recorded. Medical Equipment None Reported. Allergies Allergen ID Allergen Name Allergen Category Reaction Reaction Severity Criticality Documentation Date Start Date Code Code System Note Provider Name and Address Organization Details Recorded Time 79664 dextromet horphan medicatio n hives severe Not available 02/13/2021 3289 RxNorm [facility] 14:07:01 18579 amoxicill in medicatio n hives severe Not available 02/13/2021 723 RxNorm [facility] 14:07:01 Medications Name Sig Start Date Stop Date Status Note LastModified by Organization Details LastModified Time Mirena 21 mcg/24 hr (up to 8 years) 52 mg intrauterin e device Take 1 device by intrauter ine route. 2020 active [facility] [address] -[phone] 01EXP 06/21 24LOT [id number] pa Not Available Not Available Not Available clindamycin HCl 300 mg capsule TAKE 1 CAPSULE BY MOUTH EVERY 12 HOURS 10/28 completed Not Available Not Available Not Available azithromyci n 250 mg tablet TAKE 2 TABLETS BY MOUTH ON DAY 1 AND THEN TAKE 1 TABLET BY MOUTH ONCE A DAY ON DAY 2 THROUGH DAY 5 02/13 completed Not Available Not Available Not Available glipizide 10 mg tablet TAKE 1 TABLET BY MOUTH ONCE DAILY 02/13 completed Not Available Not Available Not Available prednisone 20 mg tablet TAKE 1 TABLET BY MOUTH TWICE DAILY 02/13 completed Not Available Not Available Not Available sulfamethox azole 800 mg-trimetho prim 160 mg tablet Take 1 tablet every 12 hours by oral route for 7 days. 11/27 completed Not Available Not Available Not Available alprazolam 0.25 mg tablet TAKE 1/4 (ONE-FOUR TH) TO 1/2 (ONE-HALF ) TABLET BY MOUTH TWICE DAILY NEEDED FOR PANIC ATTACK active Not Available Not Available No t Available metformin 1,000 mg tablet TAKE 1 TABLET BY MOUTH TWICE DAILY 02/13 completed Not Available Not Available Not Available triamcinolo ne acetonide 0.1 % topical ointment APPLY OINTMENT TOPICALLY TWICE DAILY TO AFFECTED AREA FOR 7 DAYS 04/09 completed Not Available Not Available Not Available mupirocin 2 % topical ointment APPLY A SMALL AMOUNT TO THE AFFECTED AREA BY TOPICAL ROUTE 3 TIMES PER DAY x 7 days 11/27 completed Not Available Not Available Not Available methylpredn isolone 4 mg tablets in a dose pack TAKE DIRECTED 10/28 completed Not Available Not Available Not Available albuterol sulfate HFA 90 mcg/actuati on aerosol inhaler INHALE 1 PUFF BY MOUTH EVERY 4 HOURS NEEDED FOR SHORTNESS OF BREATH FOR WHEEZING 11/27 completed Not Available Not Available Not Available fluoxetine 20 mg capsule TAKE 1 CAPSULE BY MOUTH ONCE DAILY active Not Available Not Available No t Available Diflucan 200 mg tablet Take 1 tablet on days 1, 4 & 7 x 3 doses. 2021 active Not Available Not Available Not Avai lable nitrofurant oin monohydrate /macrocryst als 100 mg capsule 04/09 completed Not Available Not Available Not Available cimetidine 04/10 completed Not Available Not Available Not Available Mirena 05/15 completed Not Available Not Available Not Available Fluoxetine 02/13 completed Not Available Not Available Not Available Vitamin D3 125 mcg (5,000 unit) tablet Take by oral route. active Not Available Not Available No t Available Farxiga 10 mg tablet TAKE 1 TABLET BY MOUTH ONCE DAILY active Not Available Not Available No t Available Tremfya 100 mg/mL subcutaneou s auto-inject or active Not Available Not Available Not Available Vitals Date Recorded Body height Body mass index (BMI) Body weight Systolic blood pressure Diastolic blood pressure Provider Name and Address Organization Details Last Updated DateTime 04/10/2021 165.1 cm 38.8 kg/m2 493371.0 2 g 138 mm[Hg] 88 mm[Hg] Felicitas Shields [facility] 14:42:09 Date Recorded Body height Body mass index (BMI) Body weight Systolic blood pressure Diastolic blood pressure Provider Name and Address Organization Details Last Updated DateTime 05/15/2021 165.1 cm 39.1 kg/m2 337299.2 1 g 130 mm[Hg] 80 mm[Hg] [facility] 11:51:44 Date Recorded Body height Body mass index (BMI) Body weight Systolic blood pressure Diastolic blood pressure Provider Name and Address Organization Details Last Updated DateTime 10/28/2021 165.1 cm 39.1 kg/m2 500495.2 1 g 112 mm[Hg] 74 mm[Hg] [facility] 16:03:56 Date Recorded Body height Body mass index (BMI) Body weight Provider Name and Address Organization Details Last Updated DateTime 11/27/2021 165.1 cm 39.1 kg/m2 278210.21 g [facility] 11/27/2021 14:58:31 Date Recorded Systolic blood pressure Diastolic blood pressure Provider Name and Address Organization Details Last Updated DateTime 11/27/2021 122 mm[Hg] 76 mm[Hg] Fanny Romero [facility]- [address], [place], [address], [facility] 11/27/2021 15:11:35 Date Recorded Body height Body mass index (BMI) Body weight Provider Name and Address Organization Details Last Updated DateTime 03/19/2022 165.1 cm 38.8 kg/m2 037227.02 [facility] 03/19/2022 14:11:30 Date Recorded Systolic blood pressure Diastolic blood pressure Provider Name and Address Organization Details Last Updated DateTime 03/19/2022 122 mm[Hg] 80 mm[Hg] Fanny Romero [facility]- [address], [place], [address], [facility] 03/19/2022 15:54:50 Social History Question Answer Notes LastModified by Organizat ion Details LastModified Time Do You Have An Advance Directive? Yes Information not available 02/13/2021 What Is Your Level Of Alcohol Consumption? Occasional Information not available 02/13/2021 How Many Years Have You Consumed Alcohol? 20 Information not available 02/13/2021 Are You Blind Or Do You Have Difficulty Seeing? Yes Information not available 03/19/2022 What Is Your Level Of Caffeine Consumption? Moderate Information not available 05/15/2021 In The 14 Days Before Symptom Onset, Have You Had Close Contact With A Laboratory-confir med COVID-19 While That Case Was Ill? No Information not available 02/13/2021 In The 14 Days Before Symptom Onset, Have You Had Close Contact With A Person Who Is Under Investigation For COVID-19 While That Person Was Ill? No Information not available 02/13/2021 Have You Been To An Area Known To Be High Risk For COVID-19? No Information not available 02/13/2021 Are You Deaf Or Do You Have Serious Difficulty Hearing? No Information not available 02/13/2021 What Type Of Diet Are You Following? REGULAR Information not available 02/13/2021 What Is The Highest Grade Or Level Of School You Have Completed Or The Highest Degree You Have Received? 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 No Information not available 02/13/2021 Do You Use Protection During Sex? No Information not available 02/13/2021 Do You Use Your Seat Belt Or Car Seat Routinely? Yes Information not available 02/13/2021 Do You Have Smoke And Carbon Monoxide Detectors In Your Home? Yes Information not available 02/13/2021 How Much Tobacco Do You Smoke? No Information not available 02/13/2021 Do You Feel Stressed (tense, Restless, Nervous, Or Anxious, Or Unable To Sleep At Night)? [id number] Information not available 02/13/2021 Do You Use Any Illicit Or Recreational Drugs? No Information not available 02/13/2021 Do You Use Sunscreen Routinely? Yes Information not available 02/13/2021 Have You Used IV Drugs? No Information not available 02/13/2021 Sex: Female Functional Status Question Answer Note LastModified by Organizat ion Details LastModified Time Do you have difficulty walking or climbing stairs? No Information not available 03/19/2022 Are you able to walk? YESWOREST Information not available 02/13/2021 Are you able to care for yourself? Yes Information not available 03/19/2022 Do you have difficulty dressing or bathing? No Information not available 03/19/2022 What is your exercise level? Occasional Information not available 02/13/2021 Mental Status None recorded. Family History Relationship Description Onset Age of this Age Resolved Age Notes LastModified by Organization Details LastModified Time Paternal Grandfather Diabetes mellitus Not available 2020 14:07:13 Paternal Grandfather Malignant tumor of lung Not available 2020 14:07:13 Maternal Grandmother Anxiety disorder Not available 2020 14:07:13 Maternal Grandmother Malignant tumor of colon Not available 2020 14:07:13 Maternal Grandmother Depressive disorder Not available 2020 14:07:13 Maternal Grandmother Hypertensive disorder Not available 2020 14:07:13 Mother Anxiety disorder Not available 2020 14:07:13 Mother Depressive disorder Not available 2020 14:07:13 Mother Hypertensive disorder Not available 2020 14:07:13 Mother Diabetes mellitus Not available 2020 14:07:13 Paternal Grandmother Hypertensive disorder Not available 2020 14:07:13 Maternal Aunt Hypercholest erolemia Not available 2020 14:07:13 Maternal Aunt Hypertensive disorder Not available 2020 14:07:13 Maternal Aunt Malignant tumor of colon Not available 2020 14:07:13 Maternal Aunt Anxiety disorder Not available 2020 14:07:13 Father Anxiety disorder Not available 2020 14:07:13 Father Hypercholest erolemia Not available 2020 14:07:13 Father Hypertensive disorder Not available 2020 14:07:13 Father Depressive disorder Not available 2020 14:07:13 Father Myocardial infarction Not available 02/13 14:07:13 Maternal Grandfather Hypercholest erolemia Not available 2020 14:07:13 Unspecified Relation Malignant tumor of colon Not available 2020 14:07:13 Unspecified Relation Diabetes mellitus Not available 2020 14:07:13 Unspecified Relation Hypercholest erolemia Not available 2020 14:07:13 Unspecified Relation Hypertensive disorder Not available 2020 14:07:13 Paternal Aunt Hypertensive disorder Not available 2020 14:07:13 Notes:01/30/2021 Cancer form complete Medical History No medical history recorded. Gynecological History Statement/Question Response Abnormal Pap Y Date of LMP 04/17/2010 On BCP's at Conception? N N Was last menstrual period normal N STIs/STDs N HPV Vaccine N Current Control Method IUD Age at First Child 25 Date of control 01/30/2011 Are cycles usually normal N Sexually Active? Y IUD Menses Monthly N Age of first menstrual cycle 10 Date of Last Pap Smear 02/13/2021 Sexual Problems? N Desired Control Method IUD LMP Approximate 05/15/2020 N Obstetrics History GPAL:G 1 P 1 0 0 1 Type Value Full Term 1 Living 1 Total 1 Past Encounters Encounter ID Performer Location Encounter Start Date Encounter Closed Date Diagnosis/Indication Diagnosis SNOMED-CT Code Diagnosis ICD10 Code Diagnosis Note [id number] [address] [address] 02/13/2021 13:52:56 02/13/2021 15:08:37 Gynecologic examination 57136460 Z01.419 Take Calcium with Vitamin D 1200mg daily if not receiving in daily diet. It is strongly advised to have an annual flu shot and up can obtain at most pharmacies . If you have not had a TDap shot in the last 10 years you should obtain one as well. Discussed with patient & provided with informatio n regarding Gardisil vaccine to prevent the 4 strains for HPV that cause cervical cancer if under age 26. Encourage safe sexual practices, to use condoms and limit partners if not already in a monogamous relationsh ip. Do monthly self breast exams. Have mammogram yearly or every other year depending on family history. BRCA testing is now available for patients with strong genetic history of female cancer. If interested contact the office. Engage in daily exercise of low impact aerobic exercise 45-60 minutes 4-5 times weekly. Avoid tobacco and illicit drugs as well as using moderation with alcohol intake less than 1-2 8 oz beverages daily. This lifestyle behavior pattern will lead to less health conditions and longer life span. If BMI greater than 25 weight watchers or dietary consult advised. Patient received above instructio ns, and questions have been answered. If you have any questions please call or respond to this email. Patient was made aware of the patient portal and may obtain a paper copy of today's plan if desired. Pap/hpv sentIUD placed 04/02/2016 (good for 6yrs but patient would like it replaced 5yrs b/c doesn't want to risk periods returning) . [id number] Shannon Liu [place] [address] [address] 04/10/2021 14:17:24 04/13/2021 19:13:02 Insertion of intrauterine contraceptive device 64679599 Z30.430 RTC in 1 month for IUD check or sooner if any problems or concerns. Screening procedure 2012 5006 Z13.9 Removal of intrauterine device 33762019 Z30.432 [id number] Fanny Romero [facility] [address] [address] 05/15/2021 11:30:22 05/15/2021 12:05:10 Intrauterine device check 882759184 Z30.431 Patient is here for 4-6wk IUD string check. She denies complicati ons, pain, or unpleasant side effects. Happy with this control method. Wishes to continue. Time spent in visit is a total of 15 mins with at least 50% of visit consisting of counseling and review of plan of care.Addit ional precaution radha measures were taken to minimize potential exposure to the Covid-19 virus during this patient s visit, including available hand aircraft life support fitter upon arrive, temperatur e check and being asked a series of screening questions. All staff wore face coverings during this encounter, as well as provided additional cleaning and sanitizing of all surfaces, including countertop s, pens, chairs, door handles, light switches, etc, prior to and following the patient s visit. [id number] Fanny Romero [facility] [address],[place] [address] 10/28/2021 15:48:50 10/28/2021 16:41:43 Abscess of vulva 18849792 N76.4 Patient is to contact office or go to nearest ED/Urgent care if fever >/= 100.1, pain, excessive bleeding, unusual drainage or swelling in area of concern; or experienci ng worsening sx's or new onset of concerning sx's. Understand ing verbalized . All questions answered to patient satisfacti on. (see procedure notes) [id number] Fanny Romero [facility] [address],[place] [address] 11/27/2021 14:44:54 11/27/2021 15:24:17 Labial cyst 623490244 N90.7 Here today for medication check of abx for labial cyst.It has cleared completely .Labial skin on exam completely returned to normal & cyst resolved.N o issues or concerns. Time spent in visit is a total of 15 mins with at least 50% of visit consisting of counseling and review of plan of care. [id number] Fanny Romero [facility] [address],[place] [address] 03/19/2022 13:55:06 03/19/2022 16:09:24 Gynecologic examination 63586404 Z01.419 Z11.51 Take Calcium with Vitamin D 1200mg daily if not receiving in daily diet. It is strongly advised to have an annual flu shot and up can obtain at most pharmacies . If you have not had a TDap shot in the last 10 years you should obtain one as well. Discussed with patient & provided with informatio n regarding Gardisil vaccine to prevent the 4 strains for HPV that cause cervical cancer if under age 26. Encourage safe sexual practices, to use condoms and limit partners if not already in a monogamous relationsh ip. Do monthly self breast exams. Have mammogram yearly or every other year depending on family history. BRCA testing is now available for patients with strong genetic history of female cancer. If interested contact the office. Engage in daily exercise of low impact aerobic exercise 45-60 minutes 4-5 times weekly. Avoid tobacco and illicit drugs as well as using moderation with alcohol intake less than 1-2 8 oz beverages daily. This lifestyle behavior pattern will lead to less health conditions and longer life span. If BMI greater than 25 weight watchers or dietary consult advised. Patient received above instructio ns, and questions have been answered. If you have any questions please call or respond to this email. Patient was made aware of the patient portal and may obtain a paper copy of today's plan if desired. Pap/hpv send STD Screen declined Genetic Screen discussed Colon Screen na Dexa Screen na Routine Labs PCPMammo na Health Concerns Section Related Observation LastModified by Organization Detai ls LastModified Time None Recorded Concern Status LastModified by Organization Details LastModified Time None Recorded Advance Directives Directive Y: Payers Encounter Date Sequence Insurance Name Policy Number Policy Phillips Covered Member ID Phillips Member ID Guarantor Name 04/10/2021 1 R [id number] Tamera M Cathers [id number] Tamera M Cathers 05/15/2021 1 UMR [id number] Tamera M Cathers [id number] Tamera M Cathers 10/28/2021 1 UMR [id number] Tamera M Cathers [id number] Tamera M Cathers 11/27/2021 1 UMR [id number] Tamera M Cathers [id number] Tamera M Cathers 03/19/2022 1 UMR [id number] Tamera M Cathers [id number] Tamera M Cathers Notes Date Note Type Note Provider Name and Address Organization Details Recorded Time 04/10/2021 text/html Patient presents for IUD removal and insertion. Device not and UPT is negative. She states the symptoms are unchanged. She has been counseled on all of the r/b/a of placement of an intrauterine device that include but are not limited to uterine perforation, injury to cervix, vagina, bladder, and bowel.Risks of bleeding due to injury or increased irregular bleeding due to progestin effect of the device. Risks of infection would be increased within the first 21 days of placement with concommitent cervicitis. She understands that the device will need to be removed in this instance due to increased risk of Pelvic inflammatory disease. Patient is aware she is at higher risk for STD and if contracted she could lose her fertility. Pt is aware that if occurs that she should contact office immediately to rule out ectopic which could be life threatening. IUD will also need to be removed and this could cause miscarriage. Patient also informed that in the event her strings are absent or embedded at the time of removal she may need to have the IUD surgically removed. She was informed of the above and properly consented. Shannon gilbert, [facility] 04/11/2021 12:28:44 05/15/2021 text/html Patient is here for 4-6wk IUD string check. She denies complications, pain, or unpleasant side effects. Happy with this control method. Wishes to continue. [facility] [address], [place], [address], [facility] 05/15/2021 12:01:55 10/28/2021 text/html Here today for vulva abscess that flared up over the past 24hrs.Noticed a small area where she thought was ingrown hair.Woke up to significant swelling of left labia majora.This area has already started to drain.uncomfortabl e but not painful. Able to ambulate/wear clothing.Neg fever/N/F/d/C. [facility]anny [facility]ero [facility] [address], [place], [address], [facility] 10/28/2021 16:40:31 11/27/2021 text/html Here today for medication check. [facility] [address], [place], [address], [facility] 11/27/2021 15:21:31 03/19/2022 text/html Annual GYNReport ed bypatient.Menstrua l cycle:Normal menses (Amenorrheic on IUD) Urinary symptoms:No hematuria; No incontinence Vulva:No genital lesion Vagina:Normal vaginal discharge Breast:No breast pain; No breast lump; No nipple discharge Current Contraception:Sati sfied with current contraception; Intrauterine device (iud) Sexual complaints:No sexual complaints; No pain during intercourse; Normal libido Menopausal Symptoms:No menopausal symptoms; Normal vaginal lubrication Psychological symptoms:No depression; No anxiety; No PMDD Preventive measures:Encourage self breast examination; Encourage regular exercise; Encourage no tobacco use; Encourage regular mammograms starting age 40; History of abnormal pap smear/cervical dysplasia [facility] [address], [place], [address], [facility] 03/19/2022 15:56:51 OBGyn Episode Ob Episode Information Episode Created Date Number of Fetuses Patient Bloodtype Patient rh Status Prepregnancy Weight lbs Domestic Partner Domestic Partner Phone Father Name Canvas Cutter Status 02/14/20 21 1 CLOSED Fetus Data First Name Last Name Admitted to NICU Weight (g) Sex Living Outcome Pediatric Complications Fetus ID Race Codes Race Delivery Type [phone] Full Term [id number] Vaginal Delivery John Calculation Initial John Date Initial Exam Date Initial Exam Provider Initial Ultrasound Date Last Menstrual Period Date Ultra Sound Weeks Gestation 0 Eighteen To Twenty Week John Update Ultra Sound Date Fundal Height At Umbil Quickening Date Ultra Sound Latest Weeks Gestation Final John Confirmed By Final John Confirmed Date Final John Date Ultra Sound Latest Days Gestation 0 0 Menstrual History Last Menstrual Date Menses Monthly On Bcp Conception Prior Menses Frequency Hcg Plus Date Menarche Onset Age Delivery Information Delivery Date Delivery Type Labor Anesthesia Weeks Gestation Incision Type Labor Labor Length Hrs Delivered By Post Complications Tubal Sterilization Discharge Date Comments 1 38 Discharge Information Feeding Method Contraceptive Method Maternal HG B and HCT Levels
--- OUTSIDE RECORDS SUMMARY | 2024-07-24 06:51 | XMS_ITS | Referral Summary ---
Author Organization [facility] Address [address] [place] [address] Care Team Providers Care Logistics Technician Name Role Phone Unknown, Notinfile Primary Care Provider Unavail able Encounters Date Type Department Care Team Description 05/31/2024 Orders Only [facility] Diabetes and Nutrition Services [facility] Medical Office Building [address], [address] [place] [address] Lia Ralph, [facility] Type 2 diabetes mellitus with other specified complication, with long-term current use of insulin ([facility]) from Last 3 Months Allergies Active Allergy Reactions Criticality Noted Date Comments Amoxicillin Rash,Hives High 07/06/2012 Rash Dextromethorphan Rash,Hives High 07/06/2012 Rash Medications FLUoxetine (PROzac) 20 mg capsule fluoxetine 20 mg capsule TAKE 1 CAPSULE BY MOUTH ONCE DAILY 0 Active levonorgestreL (Mirena) IUD Mirena 21 mcg/24 hours (8 yrs) 52 mg intrauterine device Take 1 device by intrauterine route. Active cholecalciferol (VITAMIN D-3) 5,000 unit tablet daily Active L.acidoph,plant- B.animal,long 30 billion cell capsule,delayed release(DR/EC) Take 2 capsules by mouth daily 3 Active multivit ygzgabmq-woev-UF -calcium (THERA-M) 9 mg iron-400 mcg tablet Take 1 tablet by mouth daily 30 tablet 1 3 Active insulin glargine 100 unit/mL (3 mL) pen for injection Inject 15 Units under the skin daily 3 mL 2 3 Active insulin lispro (HumaLOG, ADMELOG) 100 unit/mL pen for injection Inject 7 Units under the skin 3 (three) times a day with meals 15 mL 1 3 Active Additional Information Patient taking differently:7 Units subcutaneous 3 times daily with meals,Sliding scale, Reported on 08/25/2022 OneTouch Verio test strips strip Use as directed up to four times a day. 100 each 1 3 Active lancets misc Use as directed up to 4 times a day. 100 each 1 3 Active glucagon 1 mg kit Inject 1 mg into the muscle once as directed by provider for low blood sugar. 1 kit 3 Active atorvastatin (LIPITOR) 10 mg tablet Take 1 tablet (10 mg total) by mouth nightly 30 tablet 1 3 Active cimetidine (TAGAMET) 200 mg tablet Take 1 tablet (200 mg total) by mouth daily Active FreeStyle Zenia 2 Sensor kit 3 Active Tremfya 100 mg/mL auto-injector subcutaneous syringe 3 Active pen needle, diabetic (Pen Needle) 32 gauge x 5/32 needle Use as directed once a day. 100 each 4 Active tirzepatide (Mounjaro) 15 mg/0.5 mL pen injector injectionIndicat ions:Type 2 diabetes mellitus with other specified complication, with long-term current use of insulin (HCC) Inject 0.5 mL (15 mg total) under the skin every 7 days 2 mL 3 5 Active Active Problems Problem Noted Date Diagnosed Date Polycystic ovarian syndrome 08/06/2022 Assessment & Plan (08/08/2022 1:21 PM CDT): - Prior history of PCOS - Not on treatment - Outpatient evaluation and management -Endocrine following -She will follow up with her Riveting Machine Operator Tape Control as previously scheduled. Necrotizing soft tissue infection left buttocks 08/03/2022 Overview (08/03/2022): Added automatically from request for surgery [id number] Assessment & Plan (08/08/2022 1:22 PM CDT): Urgent OR for debridement, start IV vancomycin, cefepime, flagyl, and clindamycin --1/4 Strength Dakin's soaked gauze packing BID --Continue cefepime, flagyl, vancomycin --f/u intraoperative cultures --Evaluate for need for repeat debridement in 24-48 hrs vs. VAC vs. Ongoing definitive local wound care (sitz baths and packing daily) 08/04 dressing changed bedside, NPO after MN for return to OR further debridement 08/06 dressing changed, packed with Hydrofera Blue covered dry; allergy to amoxicillin, Cefepime stopped, continue Vancomycin, dosing increased for low Vanc trough 08/07: d/c vancomycin. Started levoquin, treat for 14 days after last debridement on 08/04 08/08 WBC remains 10 on Levaquin and fluconazole, she will complete 12 more days. Wound clean and will do NS damp to dry dressing changes at home BID. She declines HH. She is advised to stay out of work for the next 2 weeks and not sit on her wound for long periods of time. This can be re-evaluated at follow up. ACES will call her for follow up with the MUD JACK NOZZLE WORKER/PA ACES team. She is advised to hold Tremfya until her wounds are healed. Cultures 08/03 OR L buttock Biopsy/tissue Group B strep and Siobhan Antibiotics Vancomycin 08/03- 08/07 Cefepime 08/03-08/06 Flagyl 08/03- 08/06 Clindamycin 08/03 x1 Diflucan 08/06 - 08/20 Levaquin 08/07-08/20 Necrotizing fasciitis 08/03/2022 Type 2 diabetes mellitus Assessment & Plan (08/08/2022 1:20 PM CDT): Endocrine consult Recommendations: - Lantus 15 units qHS - Humalog 5 units TID AC - sensitive correctional SSI + qHS - POC glucoses TID AC qHS 2AM - Carb consistent diet, no juice or regular soda Diabetes Education consulted ordered 08/05: BG 241, Increase Humalog to 8 units TID AC 08/07 BG 145-213. Ready for discharge. Diabetes OK with discharge home without GLP1, will need prior authorization and this can be done as an outpatient. Discharge medications: Lantus 15 units daily, Humalog 7 units TID with meals, blood glucose checks at least 3 times per day. She was given pens for injection and is comfortable with this. Glucagon kit, one touch meter, lancets and strips given. She will stop the glimepiride and is unable to tolerate metformin related to GI issues. She was also given prescription for statin and will need to follow up with PCP to continue. Diabetes team making follow up arrangements and will call her with appointment. Insurance does no cover GLP1, patient will need a prior authorization. This will be done at her first outpatient appointment with Endocrine/Diabetes per Diabetes team. Class 2 obesity due to excess calories in adult Assessment & Plan (08/04/2022 4:47 PM CDT): BMI 37.5 Social History Tobacco Use Types Packs/Day Years Used Date Smoking Tobacco: Never Smokeless Tobacco: Never Tobacco Cessation:Counseling Given: Not Answered AUDIT-C Answer Date Recorded Q1: How often do you have a drink containing alc ohol? Never 08/25/2022 Average Number of Drinks Not on file 023 Frequency of Binge Drinking Not on file 08/01 Hunger Vital Sign Answer Date Recorded Within the past 12 months, y ou worried that your food would run out before you got the money to buy more. Never true 08/26/19 23 Within the past 12 months, t he food you bought just didn't last and you didn't have money to get more. Never true 08/25/2022 Personal Safety Answer Date Recorded Have you ever been in or are you currently in a harmful physical or emotional relationship or is someone making you feel afraid or unsafe? 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 Gender Identity Female 01/13/2023 1:36 PM CDT Sexual Orientation Straight 01/13/2023 1: 36 PM CDT Last Filed Vital Signs Vital Sign Reading Time Taken Comments Blood Pressure 126/76 01/19/2024 1:48 PM CDT Pulse 94 01/19/2024 1:48 PM CDT Temperature 37.1 C (98.7 F) 01/19/2024 1:48 PM CDT Respiratory Rate 18 08/08/2022 11:1 7 AM CDT Oxygen Saturation 97% 08/25/2022 1:40 PM CDT Inhaled Oxygen Concentration - - Weight 107.9 kg (237 lb 12.8 oz) 01/19/2024 1:48 PM CDT Height 170.2 cm (5' 7 ) 01/19/2024 1:48 PM CDT Body Mass Index 37.24 01/19/2024 1:48 PM CDT Plan of Treatment Not on file Procedures Procedure Name Priority Date/Time Associated Diagnosis Comments LIPID PANEL Routine 01/16/2024 6:59 AM CDT EGFR Routine 08/07/2022 10:14 PM CDT HEMOGLOBIN A1C Routine 08/05/2022 1:34 AM CDT from Last 3 Months or Most Recently Relevant to Health Maintenance Results * Lipid Panel (01/16/2024 6:59 AM CDT) us Historical Provider LAB BLOOD ORDERABLES Maria Esther peter Result EXTERNAL LAB * eGFR (08/07/2022 10:14 PM CDT) eGFR >90 90 - 130 mL/min/1. 73 m2 [facility] Comment: Interpretive Data Reference Interval Normal >/= 90 mL/min/1.73m2 Mildly decreased* 60 - 89 mL/min/1.73m2 Mildly to moderately decreased 45 - 59 mL/min/1.73m2 Moderately to severely decreased 30 - 44 mL/min/1.73m2 Severely decreased 15 - 29 mL/min/1.73m2 Kidney Failure < 15 mL/min/1.73m2 *Relative to young adult level Estimated glomerular filtration rate is determined by the 2020 CKD-EPI equation recommended by the National Kidney Foundation (A Unifying Approach to GFR Estimation: Recommendations of the NKF-ASK Task Force on Reassessing the Inclusion of Race in Diagnosing Kidney Disease, JASN 2020). The CKD-EPI equation should not be used for patients with unstable renal function and has not been validated in children and those over 70. Current interpretive data was last reviewed 2021. Blood 08/07/2022 10:1 4 PM CDT 08/07/2022 11:24 PM CDT Alan Diego MD LAB BLOOD ORDERABLES Final Result Performing Organization Address [facility] de Phone Number [facility] Department [place] [address] * (ABNORMAL) Hemoglobin A1c (08/05/2022 1:34 AM CDT) Hgb A1C 10.2(H) 4.0 - 5.6 % [facility] Estimated Average Glucose 246 mg/dL [facility] Comment: The ADA recommends reporting an estimated Average Glucose (eAG) with all Hemoglobin A1c results using the equation derived from a study of 507 normal and diabetic adults. Minority populations were underrepresented and children were not included. (Diabetes Care 2020; 43(S1): S66-S76). The eAG is not equivalent to a fasting glucose. Blood 08/05/2022 1:34 AM CDT 08/05/2022 2:18 AM CDT Paradise Sears NP LAB BLOOD ORDERABLES F inal Result Performing Organization Address [facility] de Phone Number [facility] Department [place] [address] from Last 3 Months or Most Recently Relevant to Health Maintenance Insurance [facility] [employer] Address: [address] [address] [place] [address] Advance Directives For more information, please contact: [phone] * Full Code (Latest Code Status on File) Date Activated Date Inactivated Comments 08/04/2022 12:19 AM 08/08/2022 8:22 PM Care Teams Logistics Technician Relationship Specialty Start Date End Date Unknown, Notinfile PCP - General 08/25/22
--- OUTSIDE RECORDS SUMMARY | 2024-07-24 06:51 | XMS_ITS | Encounter Summary ---
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 Gender Identity Female 01/13/2023 1:36 PM CDT Sexual Orientation Straight 01/13/2023 1: 36 PM CDT documented as of this encounter Plan of Treatment Not on file documented as of this encounter Procedures Procedure Name Priority Date/Time Associated Diagnosis Comments SCAN - LABS 10/04/2022 documented in this encounter Results * SCAN - LABS (10/04/2022) us Provider Scanning Final Result documented in this encounter Visit Diagnoses Not on filedocumented in this encounter Care Teams Over Short And Damage Clerk Relationship Specialty Start Date End Date Unknown, Notinfile PCP - General 08/25/22 documented as of this encounter
--- OUTSIDE RECORDS SUMMARY | 2024-07-24 06:51 | XMS_ITS | Clinical Summary ---
Author Organization [facility] Address [address] [place] [address] Care Team Providers Care Director Nurses' Registry Name Role Phone Unknown, Notinfile Primary Care Provider Unavail able Allergies Active Allergy Reactions Criticality Noted Date [...] capsules by mouth daily 3 Active multivit vceqduye-cymh-OR -calcium (THERA-M) 9 mg iron-400 mcg tablet [...] following -She will follow up with her Lime Burner as previously scheduled. Necrotizing soft tissue infection left buttocks 08/03/2022 Overview (08/03/2022): Added automatically from request for surgery [id number] Assessment & Plan (08/08/2022 1:22 PM CDT): [...] call her for follow up with the MANAGING PRINCIPAL/PA ACES team. She is advised to hold [...] Plan (08/04/2022 4:47 PM CDT): BMI 37.5 Encounters Date Type Department Care Team Description 05/31/2024 Orders Only [facility] Diabetes and Nutrition Services [address] [place] [address] Medical Office Building [address], [address] [place] [address] Lia Ralph, Servando Type 2 diabetes mellitus with other specified complication, with long-term current use of insulin (HCC) from Last 3 Months Medical History Medical History Date Comments Type 2 diabetes mellitus (HCC) GERD (gastroesophageal reflux disease) Anxiety Arthritis Migraines Autoimmune disease Menstrual problem Family History Medical History Relation Name Comments Alzheimer's disease Father Handy Cathers Depression Father Handy Cathers Early Father Handy Cathers Heart attack Father Handy Cathers Hypertension Father Handy Cathers Memory loss Father Handy Cathers Obesity Father Handy Cathers Stroke Father Handy Cathers Diabetes Father's Brother Kavon Cathers Heart attack Father's Brother Kavon Cathers Obesity Father's Brother Kavon Cathers Stroke Father's Brother Kavon Cathers Kidney disease Father's Sister 1 Tania Wiegard Obesity Father's Sister 1 Tania Wiegard Obesity Father's Sister 2 Vianey Munira Stroke Father's Sister 2 Vianey Bernice Arthritis Maternal Grandmother [facility] Asthma Maternal Grandmother [facility] COPD Maternal Grandmother [facility] Cancer Maternal Grandmother [facility] Clotting disorder Maternal Grandmother [facility] Depression Maternal Grandmother [facility] Hearing loss Maternal Grandmother [facility] Hypertension Maternal Grandmother [facility] Memory loss Maternal Grandmother [facility] Arthritis Mother Wendie Cathers Depression Mother Wendie Cathers Diabetes Mother Wendie Cathers Hyperlipidemia Mother Wendie Cathers Hypertension Mother Wendie Cathers Obesity Mother Wendie Cathers Cancer Mother's Brother rachell [facility] Obesity Mother's Brother Curry Monreal Cancer Mother's Sister Rosa Borrero Depression Mother's Sister Rosa Borrero Hypertension Mother's Sister Rosa Borrero Obesity Mother's Sister Rosa Borrero Cancer Paternal Grandfather Dimitrios [place] Cancer Paternal Grandmother Carol Segovia Memory loss Paternal Grandmother Carol Segovia Obesity Paternal Grandmother Carol Segovia Anesthesia problems Neg Hx Relation Name Status Comments Father Handy Segovia Father's Brother Kavon Segovia Father's Sister 1 Tania Wiegard Father's Sister 2 Vianey Cordovall Maternal Grandmother Iliana Monreal Mother Wendie Seg[place]ia Mother's Brother Curry Monreal Mother's Sister Rosa Borrero Paternal Grandfather Dimitrios [place] Paternal Grandmother Carol Segovia Social History Tobacco Use Types Packs/Day Years [...] on file 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 Gender Identity Female 01/13/2023 1:36 PM CDT Sexual Orientation Straight 01/13/2023 1: 36 PM CDT Obstetrics History Last Filed Vital Signs Vital Sign Reading [...] 01/19/2024 1:48 PM CDT Plan of Treatment Health Maintenance Due Date Last Done Comments Albumin Creatinine Ratio, Urine 1984 Breast Cancer Screening-Mammogram 1984 Cervical Cancer Screening 1984 Depression Screening 1984 Hepatitis C Screening 1984 Dilated Eye Exam 1984 Foot Exam 1984 Varicella Vaccines (1 of 2 - 13+ 2-dose series) 1997 Hepatitis B Screening 2002 Regular Well Visit/Exam 18-64 2002 Pneumococcal vaccine <65 (1 of 2 - PCV) 2003 Hemoglobin A1C 02/04/2023 08/05/2022, 08/04/2022 eGFR 08/08/2023 08/07/2022, 04/0 10/2022, 08/05/2022, Additional history exists Covid-19 Vaccine (3 - season) 2024 12/14/2020, 11/16/2020 Influenza Vaccine (#1) 2024 02/17/2017 Lipid Panel 01/15/2025 01/16/2024, 04/0 09/2022, 07/06/2012 DTaP/Tdap/Td Vaccine (3 - Td or Tdap) 05/10/2032 05/10/2022, 01/01/2011 HPV Vaccines Aged Out No longer eligi ble based on patient's age to complete this topic Procedures Procedure Name Priority Date/Time Associated Diagnosis Comments LIPID PANEL Routine 01/16/2024 6:59 AM CDT EGFR Routine 08/07/2022 10:14 PM CDT HEMOGLOBIN A1C Routine 08/05/2022 1:34 AM CDT from Last 3 Months or Most Recently Relevant to Health Maintenance Results * Lipid Panel (01/16/2024 6:59 AM CDT) Historical Provider LAB BLOOD ORDERABLES Maria Esther l Result EXTERNAL LAB * eGFR (08/07/2022 10:14 PM CDT) eGFR >90 90 - 130 mL/min/1. 73 m2 [facility] Comment: Interpretive Data Reference Interval Normal >/= [...] BLOOD ORDERABLES Final Result Performing Organization Address City/[facility]/ZIP Co de Phone Number [facility] Department [place] [address] * (ABNORMAL) Hemoglobin A1c (08/05/2022 1:34 AM CDT) Hgb A1C 10.2(H) 4.0 - 5.6 % [facility] Estimated Average Glucose 246 mg/dL [facility] Comment: The ADA recommends reporting an estimated Average Glucose (eAG) with all Hemoglobin A1c results using the equation derived from a study of 507 normal and diabetic adults. Minority populations were underrepresented and children were not included. (Diabetes Care 2020; 43(S1): S66-S76). The eAG is not equivalent to a fasting glucose. Blood 08/05/2022 1:34 AM CDT 08/05/2022 2:18 AM CDT us Paradise Paez Renu MANAGING PRINCIPAL LAB BLOOD ORDERABLES F inal Result Performing Organization Address City/State/[facility] Co de Phone Number [facility] Department [place] [address] from Last 3 Months or Most Recently Relevant to Health Maintenance Insurance [facility]/PPO Address: [facility] [address] [place] [address] [facility] HMO/PPO Address: [address] [address] [place] [address] Advance Directives For more information, please contact: [phone] * Full Code (Latest Code Status on File) Date Activated Date Inactivated Comments 08/04/2022 12:19 AM 08/08/2022 8:22 PM Care Teams Director Nurses' Registry Relationship Specialty Start Date End Date Unknown, Notinfile PCP - General 08/25/22
[2024-07-24 07:12] LABS: Basophils Percent Auto 0.2 % (0.2-1.2); Eosinophils Absolute Auto 0.1 K/mm3 (0-0.3); Eosinophils Percent Auto 1.1 % (0-4.4); Hematocrit 41.6 % (37.0-47.0); Hemoglobin 13.6 g/dL (12.0-15.0); Immature Granulocyte Absolute 0.03 K/mm3 (0.00-0.031); Immature Granulocyte Percent A 0.3 % (0-0.5); Lymphocytes Percent Auto 20.5 % (18.3-44.2); Mean Corpuscular HGB Conc 32.7 g/dl (32-36); Mean Corpuscular Hemoglobin 29.8 pg (26-34); Mean Platelet Volume 9.2 fl (7.4-10.4); Monocytes Absolute Auto 0.6 K/mm3 (0.1-0.6); Monocytes Percent Auto 6.6 % (2.6-8.5); Neutrophils Percent Auto 71.3 % (45.5-73.1); Platelet Count Result 243 k/mm3 (150-375); Red Blood Count 4.57 M/mm3 (4.2-5.4); Red Cell Distribution Width 13.2 % (11.5-14.5); White Blood Count 9.8 K/mm3 (4.5-10.0)
[2024-07-24 07:22] LABS: Alanine Aminotransferase 14 U/L (6-35); Albumin Level 4.1 g/dL (3.5-5.1); Alkaline Phosphatase 90 U/L (38-126); Anion Gap 8 mmol/L (4-12); Aspartate Amino Transferase 14 U/L (14-36); Bilirubin,Total 0.5 mg/dL (0.2-1.3); Blood Urea Nitrogen 15 mg/dL (7-17); Calcium 9.2 mg/dL (8.4-10.2); Carbon Dioxide 27 mmol/L (22-30); Chloride 103 mmol/L (98-107); Cholesterol 110 mg/dL (0-200); Estimated Glomerular Filt Rate > 60; Glucose 205 mg/dL (65-110); HDL Direct 30 mg/dL; Potassium 4.2 mmol/L (3.4-5.0); Sodium 138 mmol/L (137-145); Triglycerides 168 mg/dL (<150)
[2024-07-24 07:33] LABS: LDL Cholesterol Direct 36 mg/dL
[2024-07-24 07:35] LABS: Hemoglobin A1C 6.7 % (<5.7)
[2024-07-24 09:18] LABS: Creatinine Urine 194.3 mg/dL
[2024-07-24 09:23] LABS: MALB Creatinine Ratio 8.9 mg/g (0-30); Microalbumin Urine Random 17.2 mg/L (0-16.7)
[2024-07-24 09:33] LABS: Vitamin D 25 Hydroxy 82.6 ng/mL
[2024-07-24 09:47] LABS: Thyroid Stimulating Hormone Reflex 0.456 uIU/mL (0.465-4.68)
[2024-07-24 10:47] LABS: Free T4 Free Thyroxine Reflex 0.96 ng/dL (0.78-2.19)
[2024-07-24 11:47] LABS: Total Triiodothyronine (T3) 1.58 NG/ML (0.97-1.69)
== END 2024-07-24 06:48 | disposition home or self-care (01) ==
LOC: ANHLAB 06:48
PROVIDERS: PCP Family Medicine; Visit Provider Nurse Practitioner Family
DX: E55.9 Vitamin D deficiency, unspecified (principal); E11.9 Type 2 diabetes mellitus without complications; I10 Essential (primary) hypertension; E78.5 Hyperlipidemia, unspecified
CPT/HCPCS: 36415; 80053; 80061; 82043; 82306; 83036; 84439; 84443; 84480; 85025

== ENCOUNTER 2024-12-10 07:13 | Outpatient (CLI) | payer OTHER, SELFPAY ==
--- OUTSIDE RECORDS SUMMARY | 2024-12-10 07:23 | XMS_ITS | Clinical Summary ---
Author Organization [facility] Address [address] [place] [address] Care Team Providers Care Solar Sales Rep Name Role Phone Unknown, Notinfile Primary Care [...] Active L.acidoph,plant- B.animal,long 30 billion cell capsule,delayed release(/EC) Take 2 capsules by mouth daily 3 Active multivit wvrpkpjb-qtkw-XW -calcium (THERA-M) 9 mg iron-400 mcg tablet [...] complication, with long-term current use of insulin Inject 0.5 mL (15 mg total) under the skin every 7 days 2 mL 3 5 Active Active Problems Problem Noted Date Diagnosed Date Polycystic ovarian syndrome 08/06/2022 Assessment & Plan (08/08/2022 1:21 PM CDT): - Prior history of PCOS - Not on treatment - Outpatient evaluation and management -Endocrine following -She will follow up with her Shank Burnisher as previously scheduled. Necrotizing soft tissue infection left buttocks 08/03/2022 Overview (08/03/2022): Added automatically from request for surgery [id number] Assessment & Plan (08/08/2022 1:22 PM CDT): [...] call her for follow up with the SOFTWARE ENGINEER WEB APPLICATIONS/PA ACES team. She is advised to hold [...] Plan (08/04/2022 4:47 PM CDT): BMI 37.5 Medical History Medical History Date Comments Type 2 diabetes mellitus GERD (gastroesophageal reflux disease) Anxiety Arthritis Migraines [...] Tania Wiegard Obesity Father's Sister 2 Vianey [place] Stroke Father's Sister 2 Vianey Munira Arthritis Maternal Grandmother [facility] Asthma Maternal Grandmother [facility] COPD Maternal Grandmother [facility] Cancer Maternal [facility] Clot[facility] disorder Maternal Grandmother [facility] Depression Maternal Grandmother [facility] Hearing loss Maternal Grandmother [facility] Hypertension Maternal Grandmother [facility] Memory loss Maternal [facility] Arthritis Mother Wendie Cathers Depression Mother Wendie Cathers Diabetes Mother Wendie Cathers Hyperlipidemia Mother Wendie Cathers Hypertension Mother Wendie Cathers Obesity Mother Wendie Cathers Cancer Mother's Brother Curry Rah Obesity Mother's Brother Curry Rah Cancer Mother's Sister Rosa Borrero Depression Mother's Sister Rosa Borrero Hypertension Mother's Sister Rosa Borrero Obesity Mother's Sister Rosa Borrero Cancer Paternal Grandfather Dimitrios Cathers Cancer Paternal Grandmother Carol Cathers Memory loss Paternal Grandmother Carol Cathers Obesity Paternal Grandmother Carol Cathers Anesthesia problems Neg Hx Relation Name Status Comments Father Handy Segovia Father's Brother Kavon Segovia Father's Sister 1 Tania Dawn Father's Sister 2 Vianey Lombardo Maternal Grandmother Iliana Monreal Mother Wendie Segovia [...] on file Legal Sex 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 Gender Identity Female 01/13/2023 1:36 PM CDT Sexual Orientation Straight 01/13/2023 1: 36 PM CDT Obstetrics History Last Filed Vital Signs Vital Sign Reading Time Taken Comments Blood Pressure 132/81 07/25/2024 2:16 PM CDT Pulse 89 07/25/2024 2:16 PM CDT Temperature 36.8 C (98.2 F) 07/25/2024 2:16 PM CDT Respiratory Rate 18 08/08/2022 11:1 7 AM CDT Oxygen Saturation 97% 08/25/2022 1:40 PM CDT Inhaled Oxygen Concentration - - Weight 106.4 kg (234 lb 9.6 oz) 07/25/2024 2:16 PM CDT Height 170.2 cm (5' 7) 07/25/2024 2:16 PM CDT Body Mass Index 36.74 07/25/2024 2:16 PM CDT Plan of Treatment Health Maintenance [...] <65 (1 of 2 - PCV) 2003 HPV Vaccines (1 - 3-dose SCD M series) 2011 Hemoglobin A1C 02/04/2023 08/05/2022, 08/04/2022 eGFR 08/08/2023 08/07/2022, 04/0 10/2022, 08/05/2022, Additional history exists Covid-19 Vaccine (3 - 2023-2 5 season) 2024 12/14/2020, 11/16/2020 Influenza Vaccine (#1) 2024 02/17/2017 Lipid Panel 01/15/2025 01/16/2024, 04/0 09/2022, 07/06/2012 DTaP/Tdap/Td Vaccine (3 - Td or Tdap) 05/10/2032 05/10/2022, 01/01/2011 Procedures Procedure Name Priority Date/Time Associated Diagnosis [...] >90 90 - 130 mL/min/1. 73 m2 [facility] Comment: Interpretive Data Reference Interval Normal >/= [...] 4 PM CDT 08/07/2022 11:24 PM CDT us Alan Diego MD LAB BLOOD ORDERABLES Final Result [facility] [place] [address] * (ABNORMAL) Hemoglobin A1c (08/05/2022 1:34 AM CDT) Hgb A1C 10.2(H) 4.0 - 5.6 % [facility] Estimated Average Glucose 246 mg/dL [facility] Comment: The ADA recommends reporting an [...] 2:18 AM CDT us Paradise Paez Renu SOFTWARE ENGINEER WEB APPLICATIONS LAB BLOOD ORDERABLES F inal Result [facility] [place] [address] from Last 3 Months or Most Recently Relevant to Health Maintenance Insurance [facility] Advance Directives For more information, please contact: [phone] * Full Code (Latest Code Status on File) Date Activated Date Inactivated Comments 08/04/2022 12:19 AM 08/08/2022 8:22 PM Care Teams Solar Sales Rep Relationship Specialty Start Date End Date Unknown, Notinfile PCP - General 08/25/22
--- OUTSIDE RECORDS SUMMARY | 2024-12-10 07:23 | XMS_ITS | Clinical Summary ---
Author Organization [facility] Address [address] [place] [id number] Care Team Providers Care Ball Ender Name Role Phone Unavailable Primary Care Provider [...] 10:36 AM CDT Height 170.2 cm (5' 7) 07/18/2017 10:3 6 AM CDT Body Mass Index 41.72 07/18/2017 10:36 AM CDT Plan of Treatment Health Maintenance Due Date Last Done Comments Cervical Cancer Screening Pa p Smear (Age 30 to 64) Every 3 Years 1984 Annual Physical 1987 Hepatitis C 2002 Hepatitis B Vaccines (1 of 3 - 19+ 3-dose series) 2003 HPV Vaccines (1 - 3-dose SCD M series) 2011 Cervical Cancer Screening Pa p with HPV Testing (Age 30 to 64) Every 5 Years 2014 Cervical Cancer Screening with HPV 2014 DTaP, Tdap and Td Vaccines ( 2 - Td or Tdap) 01/01/2021 01/01/2011 COVID-19 Vaccine (2023-2 5 season) 2024 Mammogram Screening 2024 Meningococcal B Vaccine Aged Out No l onger eligible based on patient's age to complete this topic Meningococcal Vaccine Aged Out No bianca malia eligible based on patient's age to complete this topic Pneumococcal Vaccine: Pediat rics (0 to 5 Years) and At-Risk Patients (6 to 49 Years) Aged Out No longer eligi ble based on patient's age to complete this topic RSV Immunizations Under 20 Months Aged Out No longer eligible based on patient's age to complete this topic
--- OUTSIDE RECORDS SUMMARY | 2024-12-10 07:23 | XMS_ITS | Clinical Summary ---
Author Organization [facility] Address [address], [facility] [address] [place] [address] Phone Care Team Providers Care Traffic Clerk Name Role Phone Cassandra Gaona APRN, SALES MARKET LEADER Primary Care Provider + Allergies Active Allergy Reactions Criticality Noted Date [...] Comments Blood Pressure 136/84 03/07/2020 11:00 AM CERTIFIED BREASTFEEDING EDUCATOR Pulse 86 03/07/2020 11:00 AM CERTIFIED BREASTFEEDING EDUCATOR Temperature 36.1 C (97 F) 03/07/2020 11:00 AM CERTIFIED BREASTFEEDING EDUCATOR Respiratory Rate - - Oxygen Saturation 98% 03/07/2020 11:00 AM CERTIFIED BREASTFEEDING EDUCATOR Inhaled Oxygen Concentration - - Weight 106.6 kg (235 lb) 03/07/2020 11:00 AM CERTIFIED BREASTFEEDING EDUCATOR Height 170.2 cm (5' 7) 03/07/2020 11:00 AM CERTIFIED BREASTFEEDING EDUCATOR Body Mass Index 36.81 03/07/2020 11:00 AM CERTIFIED BREASTFEEDING EDUCATOR Plan of Treatment Health Maintenance Due Date Last Done Comments Hepatitis C Virus (HCV) Screening 1984 Hepatitis B Immunization (1 of 3 - 19+ 3-dose series) 2003 Pap Smear 2005 Human Papillomavirus (HPV) Immunization (1 - 3-dose SCDM series) 2011 Cervical Cancer Screening (CCS) 2014 HPV/Cotest 2014 SARS-COV-2 Immunization (3 - 2023- season) 2024 12/14/2020, 11/16/2020 Influenza Immunization (#1) 2024 02/17/2017 Colonoscopy 05/15/2030 05/15/2020 Colorectal Cancer Screening 05/15/2030 Respiratory Syncytial Virus (RSV) Immunization (Adult) (1 [...] Most Recently Relevant to Health Maintenance Insurance [employer] [address] Care Teams Traffic Clerk Relationship Specialty Start Date End Date Cassandra Gaona APRN, SALES MARKET LEADER PCP - General Certified Nurse Practitioner 03/07/20
--- OUTSIDE RECORDS SUMMARY | 2024-12-10 07:23 | XMS_ITS | Encounter Summary ---
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
== END 2024-12-10 07:14 | disposition home or self-care (01) ==
PROVIDERS: PCP Family Medicine
DX: L40.0 Psoriasis vulgaris (principal)
CPT/HCPCS: 86480

== ENCOUNTER 2025-01-29 07:07 | Outpatient (CLI) | payer OTHER, SELFPAY ==
--- OUTSIDE RECORDS SUMMARY | 2025-01-29 07:11 | XMS_ITS | Clinical Summary ---
Author Organization [facility] Address [address], [facility] [address] [place] [address] Phone Care Team Providers Care Forge Operator Name Role Phone Cassandra Gaona APRN, MOLD MAINTENANCE TECHNICIAN Primary Care Provider + Allergies Active Allergy [...] Comments Blood Pressure 136/84 03/07/2020 11:00 AM DISTRIBUTOR SALES CONSULTANT Pulse 86 03/07/2020 11:00 AM DISTRIBUTOR SALES CONSULTANT Temperature 36.1 C (97 F) 03/07/2020 11:00 AM DISTRIBUTOR SALES CONSULTANT Respiratory Rate - - Oxygen Saturation 98% 03/07/2020 11:00 AM DISTRIBUTOR SALES CONSULTANT Inhaled Oxygen Concentration - - Weight 106.6 kg (235 lb) 03/07/2020 11:00 AM DISTRIBUTOR SALES CONSULTANT Height 170.2 cm (5' 7) 03/07/2020 11:00 AM DISTRIBUTOR SALES CONSULTANT Body Mass Index 36.81 03/07/2020 11:00 AM DISTRIBUTOR SALES CONSULTANT Plan of Treatment Health Maintenance Due Date Last Done Comments Hepatitis C Virus (HCV) Screening 1984 Hepatitis B Immunization (1 of 3 - 19+ 3-dose series) 2003 Pap Smear 2005 Human Papillomavirus (HPV) Immunization (1 - 3-dose SCDM series) 2011 Cervical Cancer Screening (CCS) 2014 HPV/Cotest 2014 Influenza Immunization (#1) 2024 02/17/2017 SARS-COV-2 Immunization ( season) 2024 12/14/2020, 11/16/2020 Colonoscopy 05/15/2030 05/15/2020 Colorectal Cancer Screening 05/15/2030 [...] Most Recently Relevant to Health Maintenance Insurance [employer] [address] Care Teams Forge Operator Relationship Specialty Start Date End Date Cassandra Gaona APRN, MOLD MAINTENANCE TECHNICIAN PCP - General Certified Nurse Practitioner 03/07/20
--- OUTSIDE RECORDS SUMMARY | 2025-01-29 07:11 | XMS_ITS | Encounter Summary ---
Author Organization [facility] Address [address] [place] [address] Phone Care Team Providers Care Cement Storage Worker Name Role Phone Unknown, Notinfile Primary Care [...] on file Legal Sex Female 7:31 PM DIAGNOSTIC IMAGING MANAGER Gender Identity Female 01/13/2023 1:36 PM [...] on filedocumented in this encounter Care Teams Cement Storage Worker Relationship Specialty Start Date End Date Unknown, Notinfile PCP - General 08/25/22 documented as of this encounter
--- OUTSIDE RECORDS SUMMARY | 2025-01-29 07:11 | XMS_ITS | Clinical Summary ---
Author Organization [facility] Address [address] [place] [address] Care Team Providers Care Community Nutrition Educator Name Role Phone Unknown, Notinfile Primary Care Provider Unavail able Allergies Active Allergy Reactions Criticality Noted Date Comments Amoxicillin Rash,Hives High 07/06/2012 Rash Dextromethorphan Rash,Hives High 07/06/2012 Rash Medications FLUoxetine (PROzac) 20 mg capsule fluoxetine 20 mg capsule TAKE 1 CAPSULE BY MOUTH ONCE DAILY 020 Active levonorgestreL (Mirena) IUD Mirena 21 mcg/24 hours (8 yrs) 52 mg intrauterine device Take 1 device by intrauterine route. Active cholecalciferol (VITAMIN D-3) 5,000 unit tablet daily Active L.acidoph,plant -B.animal,long 30 billion cell capsule,delayed release(/EC) Take 2 capsules by mouth daily 023 Active multivit zbbdwaik-mcgv-V A-calcium (THERA-M) 9 mg iron-400 mcg tablet Take 1 tablet by mouth daily 30 tablet 1 023 Active insulin glargine 100 unit/mL (3 mL) pen for injection Inject 15 Units under the skin daily 3 mL 2 023 Active insulin lispro (HumaLOG, ADMELOG) 100 unit/mL pen for injection Inject 7 Units under the skin 3 (three) times a day with meals 15 mL 1 023 Active Additional Information Patient taking differently:7 Units subcutaneous 3 times daily with meals,Sliding scale, Reported on 08/25/2022 OneTouch Verio test strips strip Use as directed up to four times a day. 100 each 1 023 Active lancets misc Use as directed up to 4 times a day. 100 each 1 023 Active glucagon 1 mg kit Inject 1 mg into the muscle once as directed by provider for low blood sugar. 1 kit 023 Active atorvastatin (LIPITOR) 10 mg tablet Take 1 tablet (10 mg total) by mouth nightly 30 tablet 1 023 Active cimetidine (TAGAMET) 200 mg tablet Take 1 tablet (200 mg total) by mouth daily Active FreeStyle Zenia 2 Sensor kit Active Tremfya 100 mg/mL auto-injector subcutaneous syringe Active pen needle, diabetic (Pen Needle) 32 gauge x 5/32 needle Use as directed once a day. 100 each 024 Active tirzepatide (Mounjaro) 15 mg/0.5 mL pen injector injectionIndica tions:Type 2 diabetes mellitus with other specified complication, with long-term current use of insulin INJECT 1 PEN SUBCUTANEOUSLY ONCE A WEEK 4 mL 3 025 Active tirzepatide (Mounjaro) 15 mg/0.5 mL pen injector injectionIndica tions:Type 2 diabetes mellitus with other specified complication, with long-term current use of insulin Inject 0.5 mL (15 mg total) under the skin every 7 days 2 mL 3 025 2024 Discontinued Active Problems Problem Noted Date Diagnosed Date Polycystic ovarian syndrome 08/06/2022 Assessment & Plan (08/08/2022 1:21 PM CDT): - Prior history of PCOS - Not on treatment - Outpatient evaluation and management -Endocrine following -She will follow up with her Hse Coordinator as previously scheduled. Necrotizing soft tissue infection left buttocks 08/03/2022 Overview (08/03/2022): Added automatically from request for surgery [id number] Assessment & Plan (08/08/2022 1:22 PM CDT): [...] call her for follow up with the TRANSITION PROGRAM MANAGER/PA ACES team. She is advised to hold [...] Tania Wiegard Obesity Father's Sister 2 Vianey [place] Stroke Father's Sister 2 Vianey Mun[place] Arthritis Maternal Grandmother [facility] Asthma Maternal Grandmother [facility] COPD Maternal Grandmother [facility] Cancer Maternal Grandmother [facility] Clotting disorder Maternal Grandmother [facility] Depression Maternal Grandmother [facility] Hearing loss Maternal Grandmother [facility] Hypertension Maternal Grandmother [facility] Memory loss Maternal Grandmother [facility] Arthritis Mother Wendie Cathers Depression Mother Wendie Cathers Diabetes Mother Wendie Cathers Hyperlipidemia Mother Wendie Cathers Hypertension Mother Wendie Cathers Obesity Mother Wendie Cathers Cancer Mother's Brother [facility] Obesity Mother's Brother [facility] Cancer Mother's Sister Rosa Borrero Depression Mother's [...] 1 Tania Wiegard Father's Sister 2 Vianey Lombardo Maternal Grandmother [...] on file Legal Sex Female 7:31 PM THERAPY DIRECTOR Gender Identity Female 01/13/2023 1:36 PM CDT [...] (1 - 3-dose SCD M series) 2011 Covid-19 Vaccine (3 - Modern a risk series) 01/11/2021 12/14/2020, 11/16/2020 Hemoglobin A1C 02/04/2023 08/05/2022, 08/04/2022 eGFR 08/08/2023 08/07/2022, 04/0 10/2022, 08/05/2022, Additional history exists Influenza Vaccine (#1) 2024 02/17/2017 Lipid Panel [...] >90 90 - 130 mL/min/1. 73 m2 [facility] Comment: Interpretive Data Reference Interval Normal [...] BLOOD ORDERABLES Final Result Performing Organization Address City/[facility] Co de Phone Number [facility] Department [place] [address] * (ABNORMAL) Hemoglobin A1c (08/05/2022 1:34 AM CDT) Hgb A1C 10.2(H) 4.0 - 5.6 % [facility] Estimated Average Glucose 246 mg/dL [facility] Comment: The ADA recommends reporting an estimated Average Glucose (eAG) with all Hemoglobin A1c results using the equation derived from a study of 507 normal and diabetic adults. Minority populations were underrepresented and children were not included. (Diabetes Care 2020; 43(S1): S66-S76). The eAG is not equivalent to a fasting glucose. Blood 08/05/2022 1:34 AM CDT 08/05/2022 2:18 AM CDT us Paradisedamaso Pedrazamary Sears NP LAB BLOOD ORDERABLES F inal Result [facility] Department [place] [address] from Last 3 Months or Most Recently Relevant to Health Maintenance Insurance [facility] Advance Directives For more information, please contact: [phone] * Full Code (Latest Code Status on File) Date Activated Date Inactivated Comments 08/04/2022 12:19 AM 08/08/2022 8:22 PM Care Teams Community Nutrition Educator Relationship Specialty Start Date End Date Unknown, Notinfile PCP - General 08/25/22
[2025-01-29 07:31] LABS: Hematocrit 38.7 % (37.0-47.0); Hemoglobin 12.6 g/dL (12.0-15.0); Immature Granulocyte Percent A 0.3 % (0-0.5); Lymphocytes Absolute Auto 1.94 K/mm3 (0.9-3.2); Mean Corpuscular HGB Conc 32.6 g/dl (32-36); Mean Corpuscular Hemoglobin 29.6 pg (26-34); Mean Corpuscular Volume 91.1 fl (80-100); Nucleated Red Blood Cells Absolute Auto 0.000 K/mm3 (0.0-0.012); Nucleated Red Blood Cells Perc 0.0 % (0.0-0.2); Platelet Count Result 247 k/mm3 (150-375); Red Blood Count 4.25 M/mm3 (4.2-5.4); White Blood Count 8.9 K/mm3 (4.5-10.0)
[2025-01-29 07:50] LABS: Hemoglobin A1C 7.2 % (<5.7)
[2025-01-29 08:12] LABS: Alanine Aminotransferase 16 U/L (6-35); Albumin Level 3.6 g/dL (3.5-5.1); Alkaline Phosphatase 108 U/L (38-126); Anion Gap 5 mmol/L (4-12); Aspartate Amino Transferase 20 U/L (14-36); Bilirubin,Total 0.6 mg/dL (0.2-1.3); Blood Urea Nitrogen 13 mg/dL (7-17); Calcium 8.1 mg/dL (8.4-10.2); Carbon Dioxide 25 mmol/L (22-30); Chloride 104 mmol/L (98-107); Cholesterol 118 mg/dL (0-200); Estimated Glomerular Filt Rate > 60; Glucose 207 mg/dL (65-110); HDL Direct 33 mg/dL; Potassium 4.1 mmol/L (3.4-5.0); Sodium 134 mmol/L (137-145); Total Protein 6.9 g/dL (6.3-8.2); Triglycerides 227 mg/dL (<150)
[2025-01-29 08:49] LABS: Thyroid Stimulating Hormone 0.586 uIU/mL (0.465-4.680)
[2025-01-29 09:34] LABS: Free T4 Free Thyroxine 0.84 ng/dL (0.78-2.19)
== END 2025-01-29 07:08 | disposition home or self-care (01) ==
LOC: ANHLAB 07:08
PROVIDERS: PCP Family Medicine; Visit Provider Nurse Practitioner Family
DX: E03.9 Hypothyroidism, unspecified (principal); E11.9 Type 2 diabetes mellitus without complications; E55.9 Vitamin D deficiency, unspecified; Z79.4 Long term (current) use of insulin
CPT/HCPCS: 36415; 80053; 80061; 82306; 83036; 84439; 84443; 85025